=== PATIENT | female | born 1940 | race Caucasian/White ===

== ENCOUNTER 2017-05-15 17:25 | Emergency (ER) | payer MEDICARE, OTHER ==
[2017-05-15 18:29] LABS: CHLORIDE,CL 100 mmol/L (101-111); SODIUM,NA 135 mmol/L (135-145)
[2017-05-15] MEDS ORDERED: Sodium Chloride 0.9% 1,000 ML IV ONE (18:32)
[2017-05-15] MEDS ORDERED: Levofloxacin/Dextrose 5%-Water 500 MG in Premix Bag 1 BAG IV ONE (18:32)
--- NOTE | 2017-05-15 19:29 | EDM.PDOC ---
Scribed by Vivian Parra 05/15/17 [id number] for Kinsey Snyder NP ED HPI GENERAL MEDICAL PROBLEM - General Chief Complaint: Respiratory Problem Stated Complaint: COUGHING,HARD TO BREATH [id number] Time Seen by Provider: 05/15/17 17:50 - History of Present Illness INITIAL COMMENTS - FREE TEXT/NARRATIVE: Patient presents to ER with complaint of not feeling well. States symptoms began yesterday with runny nose, sneezing and cough which is productive of light green. Patient has history of breast cancer with mets to bone. Patient states temperature of 101 at home. Onset Date: 05/14/17 Location: Reports: Chest Quality: Reports: Ache Severity: Moderate Improves with: Reports: None Worsens with: Reports: None Associated Symptoms: Reports: No Other Symptoms Generalized Pain Score (Numeric/FACES): 6 - Related Data Allergies Allergy/AdvReac Type Severity Reaction Status Date / Time amoxicillin Allergy Diarrhea Verified 05/15/17 18:16 Sulfa (Sulfonamide Allergy Diarrhea Verified 05/15/17 18:16 Antibiotics) Home Meds: Home Meds Brimonidine/Timolol [Combigan 0.2%/0.5% Ophth Soln] 1 drop EYEBOTH BID 05/20/13 [History] Calcium Carbonate/Vitamin D3 [Calcium 500 + Vit D 200 Tablet] 1 each PO BID 02/20 [History] Escitalopram [Lexapro] 10 mg PO DAILY 05/20/13 [History] Latanoprost [Xalatan] 1 drop EYEBOTH BEDTIME 05/20/13 [History] Loperamide [Immodium] 4 mg PO ONETIME 05/20/13 [History] Omeprazole 20 mg PO DAILY 05/20/13 [History] Bimatoprost [LUMIGAN 0.01% Ophth Soln] 1 drop EYEBOTH BEDTIME 05/15/17 [History] Letrozole [Letrozole] 1 tab PO DAILY 05/15/17 [History] Palbociclib [Ibrance] 1 cap PO DAILY 05/15/17 [History] Social & Family History - Alcohol Use Days Per Week of Alcohol Use: 0 - Recreational Drug Use Recreational Drug Use: No ED ROS GENERAL - Review of Systems Review Of Systems: ROS reveals no pertinent complaints other than HPI. ED EXAM, GENERAL - Physical Exam Exam: See Below Exam Limited By: No Limitations General Appearance: Alert, WD/WN, No Apparent Distress Eye Exam: Bilateral Eye: Normal Inspection Ears: Normal External Exam, Normal Canal, Hearing Grossly Normal, Normal TMs Nose: Normal Inspection, Normal Mucosa, No Blood Throat/Mouth: Normal Inspection, Normal Lips, Normal Teeth, Normal Gums, Normal Oropharynx, Normal Voice, No Airway Compromise Head: Atraumatic, Normocephalic Neck: Normal Inspection, Supple, Non-Tender, Full Range of Motion Respiratory/Chest: Lungs Clear Cardiovascular: Normal Peripheral Pulses, Regular Rate, Rhythm, No Edema, No Gallop, No JVD, No Murmur, No Rub GI/Abdominal: Normal Bowel Sounds, Soft, Non-Tender, No Organomegaly, No Distention, No Abnormal Bruit, No Mass (Female) Exam: Deferred Rectal (Female) Exam: Deferred Back Exam: Normal Inspection, Full Range of Motion, NT Extremities: Normal Inspection, Normal Range of Motion, Non-Tender, Normal Capillary Refill, No Pedal Edema Neurological: Alert, Oriented, CN II-XII Intact, Normal Cognition, Normal Gait, Normal Reflexes, No Motor/Sensory Deficits Psychiatric: Normal Affect, Normal Mood Skin Exam: Warm, Dry, Intact, Normal Color, No Rash Lymphatic: No Adenopathy Course - Vital Signs Last Recorded V/S: Last Vital Signs Temp 102.3 F H 05/15/17 18:03 Pulse 111 H 05/15/17 17:30 Resp 28 H 05/15/17 17:30 BP 127/44 L 05/15/17 17:30 Pulse Ox 92 L 05/15/17 17:30 - Orders/Labs/Meds Orders: Active Orders 24 hr Category Date Time Status UA W/MICROSCOPIC [URIN] Stat Lab 05/15/17 17:58 Uncollected Levofloxacin/Dextrose 5%-Water [Levaquin in D5W 500 MG/ Med 05/15/17 18:32 Active 100 ML] 500 mg Premix Bag 1 bag IV ONETIME Sodium Chloride 0.9% [Normal Saline] 1,000 ml Med 05/15/17 18:32 Active IV .BOLUS Blood Culture x2 Reflex Set [OM.PC] Stat Oth 05/15/17 17:58 Ordered Medication Orders Levofloxacin/Dextrose 500 mg/ (Premix) 100 mls @ 100 mls/hr IV ONETIME ONE Stop: 05/15/17 19:31 Last Admin: 05/15/17 18:57 Dose: 100 mls/hr Sodium Chloride (Normal Saline) 1,000 mls @ 999 mls/hr IV .BOLUS ONE Stop: 05/15/17 19:32 Last Admin: 05/15/17 18:56 Dose: 999 mls/hr Labs: Laboratory Tests 05/15/17 05/15/17 05/15/17 Range/Units 18:00 18:00 18:00 WBC 2.6 L (5.0-10.0) 10^3/uL RBC 3.74 L (4.2-5.4) 10^6/uL Hgb 11.9 L D (12.0-16.0) g/dL Hct 35.0 L (37.0-47.0) % MCV 93.6 D (80-100) fL MCH 31.8 (27.0-34.0) pg MCHC 34.0 (33.0-35.0) g/dL Plt Count 86 L (150-450) 10^3/uL Neut % (Auto) 84.4 H (42.2-75.2) % Lymph % (Auto) 10.9 L (20.5-50.1) % [place] % (Auto) 4.3 (2-8) % Eos % (Auto) 0.0 L (1.0-3.0) % Baso % (Auto) 0.4 (0.0-1.0) % Sodium 135 (135-145) mmol/L Potassium 3.5 L (3.6-5.0) mmol/L Chloride 100 L (101-111) mmol/L Carbon Dioxide 25.0 (21.0-31.0) mmol/L Anion Gap 13.5 BUN 12 (7-18) mg/dL Creatinine 0.7 (0.6-1.3) mg/dL Est Cr Clr Drug Dosing 54.79 mL/min Estimated GFR (MDRD) > 60 BUN/Creatinine Ratio 17.14 Glucose 128 H (74-105) mg/dL Lactic Acid 0.9 (0.5-2.2) mmol/L Calcium 8.9 (8.4-10.2) mg/dl Total Bilirubin 0.9 (0.2-1.0) mg/dL AST 30 (10-42) IU/L ALT 20 (10-60) IU/L Alkaline Phosphatase 46 (42-121) IU/L Total Protein 6.8 (6.7-8.2) g/dl Albumin 4.0 (3.2-5.5) g/dl Globulin 2.8 Albumin/Globulin Ratio 1.43 Influenza A & B: Negative Meds: Medications Generic Name Dose Route Start Last Admin Trade Name Luisa PRN Reason Stop Dose Admin Levofloxacin/Dextrose 500 mg/ 100 mls @ 100 mls/hr 05/15/17 18:32 05/15/17 18 :57 Premix IV 05/15/17 19:31 100 mls/hr ONETIME ONE Administration Sodium Chloride 1,000 mls @ 999 mls/hr 05/15/17 18:32 05/15/17 18:56 Normal Saline IV 05/15/17 19:32 999 mls/hr .BOLUS ONE Administration - Radiology Interpretation Free Text/Narrative:: Portable Chest xray:IMPRESSION: No acute findings. Thank you for allowing us to participate in the care of your patient. Dictated and Authenticated by: Eliu Brown MD 05/15/2017 7:27 PM Central Time ([place] & [place]) See rad report Departure - Departure Time of Disposition: 19:11 Disposition: DC/Tfer to [facility] 02 Condition: Fair Clinical Impression: Cancer, Pancytopenia Fever Qualifiers: Fever type: unspecified Qualified Code(s): R50.9 - Fever, unspecified - Discharge Information Forms: ED Department Discharge, Interfacility Transfer EMTALA - My Orders Last 24 Hours: My Active Orders 05/15/17 17:58 UA W/MICROSCOPIC [URIN] Stat Blood Culture x2 Reflex Set [OM.PC] Stat 05/15/17 18:32 Levofloxacin/Dextrose 5%-Water [Levaquin in D5W 500 MG/100 ML] 500 mg Premix Bag 1 bag IV ONETIME Sodium Chloride 0.9% [Normal Saline] 1,000 ml IV .BOLUS - Assessment/Plan Last 24 Hours: My Active Orders 05/15/17 17:58 UA W/MICROSCOPIC [URIN] Stat Blood Culture x2 Reflex Set [OM.PC] Stat 05/15/17 18:32 Levofloxacin/Dextrose 5%-Water [Levaquin in D5W 500 MG/100 ML] 500 mg Premix Bag 1 bag IV ONETIME Sodium Chloride 0.9% [Normal Saline] 1,000 ml IV .BOLUS I have read and agree with the documentation that has been completed regarding this visit. By signing this record, I attest that the documentation was completed in my physical presence and is an accurate record of the encounter.
== END 2017-05-15 19:42 ==
LOC: DL.ED 17:25
DX: D61.818 Other pancytopenia (principal); C50.919 Malignant neoplasm of unspecified site of unspecified female breast; C79.51 Secondary malignant neoplasm of bone; R50.9 Fever, unspecified; Z88.1 Allergy status to other antibiotic agents; Z88.2 Allergy status to sulfonamides; Z79.899 Other long term (current) drug therapy
CPT/HCPCS: 36415; 71045; 80053; 83605; 85025; 87804; 96365; 99285; J1956; J7030

== ENCOUNTER 2018-08-11 23:56 | Emergency (ER) | payer MEDICARE, OTHER ==
[2018-08-12] MEDS ORDERED: fentaNYL 100 MCG/2 ML SDV IVPUSH ONE ×2 (00:40→02:16)
[2018-08-12] MEDS ORDERED: Ondansetron 4 MG Tab.DIS PO ONE (00:43)
[2018-08-12] MEDS ORDERED: fentaNYL 100 MCG/2 ML SDV IM ONE (00:44)
[2018-08-12 00:59] LABS: ANION GAP 12.2; CHLORIDE,CL 100 mmol/L (101-111); SODIUM,NA 135 mmol/L (135-145)
[2018-08-12] MEDS ORDERED: Potassium Chloride 10 MEQ in Premix Bag 1 BAG IV ONE (01:14)
[2018-08-12] MEDS ORDERED: Sodium Chloride 0.9% 500 ML IV SCH (01:15)
--- NOTE | 2018-08-12 02:30 | EDM.PDOC ---
ED HPI GENERAL MEDICAL PROBLEM - General Chief Complaint: Lower Extremity Injury/Pain Stated Complaint: AMBULANCE-BODY HURTS Time Seen by Provider: 08/12/18 00:05 Source of Information: Reports: Patient, EMS History Limitations: Reports: No Limitations - History of Present Illness INITIAL COMMENTS - FREE TEXT/NARRATIVE: ED via [facility] with c/o of generalized pain greater right sacrum and bilateral legs. Patient has hx of breast cancer with mets to bone. Undergoing radiation. 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 Stated was in [facility] on Sunday for sameNausea throughout day not eating or drinking as well, chills yesterday no fever. No diarrhea. Family member gaver her something for nausea today but unsure what it was. Bilateral Leg Pain Score (Numeric/FACES): 7 - Related Data Allergies Allergy/AdvReac Type Severity Reaction Status Date / Time amoxicillin Allergy Diarrhea Verified 08/12/18 00:05 Sulfa (Sulfonamide Allergy Diarrhea Verified 08/12/18 00:05 Antibiotics) Home Meds: Home Meds Brimonidine/Timolol [Combigan 0.2%/0.5% Ophth Soln] 1 drop EYEBOTH BID 05/20/13 [History] Calcium Carbonate/Vitamin D3 [Calcium 500 + Vit D 200 Tablet] 1 each PO BID 02/20 [History] Escitalopram [Lexapro] 10 mg PO DAILY 05/20/13 [History] Latanoprost [Xalatan] 1 drop EYEBOTH BEDTIME 05/20/13 [History] Loperamide [Immodium] 4 mg PO ONETIME 05/20/13 [History] Omeprazole 20 mg PO DAILY 05/20/13 [History] Bimatoprost [LUMIGAN 0.01% Ophth Soln] 1 drop EYEBOTH BEDTIME 05/15/17 [History] Letrozole 1 tab PO DAILY 05/15/17 [History] Palbociclib [Ibrance] 1 cap PO DAILY 05/15/17 [History] Past Medical History HEENT History: Reports: Glaucoma Hematologic History: Reports: B12 Deficiency Immunologic History: Reports: Immunosuppression Oncologic (Cancer) History: Reports: Bone, Breast - Past Surgical History Female Surgical History: Reports: Mastectomy, Other (See Below) Other Female Surgeries/Procedures: left breast Social & Family History - Tobacco Use Smoking Status *Q: Never Smoker Second Hand Smoke Exposure: No - Caffeine Use Caffeine Use: Reports: Coffee - Recreational Drug Use Recreational Drug Use: No Review of Systems - Review of Systems Review Of Systems: ROS reveals no pertinent complaints other than HPI. ED EXAM, GENERAL - Physical Exam Exam: See Below Exam Limited By: No Limitations General Appearance: Alert, Anxious, Mild Distress, Thin Eye Exam: Bilateral Eye: EOMI Ears: Normal External Exam, Normal TMs Nose: Normal Inspection Throat/Mouth: Normal Inspection, Other (mucus membranes sticky) Head: Atraumatic, Normocephalic Neck: Normal Inspection Respiratory/Chest: No Respiratory Distress, Lungs Clear, Normal Breath Sounds Cardiovascular: Regular Rate, Rhythm GI/Abdominal: Normal Bowel Sounds, Soft, Non-Tender. No: Distended, Guarding Back Exam: Normal Inspection, Other (tender with palpatin mid right sacrum). No : Paraspinal Tenderness, Vertebral Tenderness Extremities: Normal Inspection, Normal Range of Motion Neurological: Alert, Oriented, Normal Cognition Psychiatric: Normal Affect, Anxious Skin Exam: Warm, Dry, Intact, Normal Color Course - Vital Signs Last Recorded V/S: Last Vital Signs Temp 98.8 F 08/11/18 23:59 Pulse 61 08/11/18 23:59 Resp 18 08/11/18 23:59 BP 124/47 L 08/11/18 23:59 Pulse Ox 100 08/11/18 23:59 - Orders/Labs/Meds Orders: Active Orders 24 hr Category Date Time Status UA RFX BENJAMÍN AND CULT IF INDIC [URIN] Urgent Lab 08/12/18 00:16 Ordered Sodium Chloride 0.9% [Normal Saline] 500 ml Med 08/12/18 01:15 Active IV .BOLUS Medication Orders Sodium Chloride (Normal Saline) 500 mls @ 150 mls/hr IV .BOLUS ZARI Last Admin: 08/12/18 01:38 Dose: 150 mls/hr Labs: Laboratory Tests 08/12/18 08/12/18 08/12/18 Range/Units 00:30 00:30 00:30 WBC 3.4 L (5.0-10.0) 10^3/uL RBC 4.10 L (4.2-5.4) 10^6/uL Hgb 10.6 L (12.0-16.0) g/dL Hct 31.7 L (37.0-47.0) % MCV 77.3 L D (80-100) fL MCH 25.9 L (27.0-34.0) pg MCHC 33.4 (33.0-35.0) g/dL Plt Count 64 L (150-450) 10^3/uL Neut % (Auto) 62.3 (42.2-75.2) % Lymph % (Auto) 21.5 (20.5-50.1) % [place] % (Auto) 9.1 H (2-8) % Eos % (Auto) 1.2 (1.0-3.0) % Baso % (Auto) 5.9 H (0.0-1.0) % Sodium 135 (135-145) mmol/L Potassium 3.2 L (3.6-5.0) mmol/L Chloride 100 L (101-111) mmol/L Carbon Dioxide 26.0 (21.0-31.0) mmol/L Anion Gap 12.2 BUN 19 H (7-18) mg/dL Creatinine 0.8 (0.6-1.3) mg/dL Est Cr Clr Drug Dosing 45.10 mL/min Estimated GFR (MDRD) > 60 BUN/Creatinine Ratio 23.75 Glucose 138 H (74-105) mg/dL Lactic Acid 0.9 (0.5-2.2) mmol/L Calcium 7.9 L (8.4-10.2) mg/dl Total Bilirubin 0.7 (0.2-1.0) mg/dL AST 24 (10-42) IU/L ALT 21 (10-60) IU/L Alkaline Phosphatase 41 L (42-121) IU/L Total Protein 5.4 L (6.7-8.2) g/dl Albumin 3.3 (3.2-5.5) g/dl Globulin 2.1 Albumin/Globulin Ratio 1.57 Meds: Medications Generic Name Dose Route Start Last Admin Trade Name Freq PRN Reason Stop Dose Admin Sodium Chloride 500 mls @ 150 mls/hr 08/12/18 01:15 08/12/18 01:38 Normal Saline IV 150 mls/hr .BOLUS ZARI Administration Discontinued Medications Generic Name Dose Route Start Last Admin Trade Name Freq PRN Reason Stop Dose Admin Fentanyl 25 mcg 08/12/18 00:40 Sublimaze IVPUSH 08/12/18 00:41 ONETIME ONE Fentanyl 25 mcg 08/12/18 00:44 08/12/18 00:51 Sublimaze IM 08/12/18 00:45 25 mcg ONETIME ONE Administration Fentanyl 25 mcg 08/12/18 02:16 Sublimaze IVPUSH 08/12/18 02:17 ONETIME ONE Potassium Chloride 10 meq/ 100 mls @ 100 mls/hr 08/12/18 01:14 08/12/18 01:38 Premix IV 08/12/18 02:13 100 mls/hr ONETIME ONE Administration Ondansetron HCl 4 mg 08/12/18 00:43 08/12/18 00:50 Zofran Odt PO 08/12/18 00:44 4 mg ONETIME ONE Administration - Re-Assessments/Exams Free Text/Narrative Re-Assessment/Exam: 08/12/18 02:52 pain and nausea improved. Vitals stable. Departure - Departure Time of Disposition: 02:53 Disposition: Home, Self-Care 01 Condition: Good Clinical Impression: Pain after radiation therapy, Hypokalemia Breast cancer metastasized to bone Qualifiers: Laterality: unspecified laterality Qualified Code(s): C50.919 - Malignant neoplasm of unspecified site of unspecified female breast; C79.51 - Secondary malignant neoplasm of bone - Discharge Information *PRESCRIPTION DRUG MONITORING PROGRAM REVIEWED*: No *COPY OF PRESCRIPTION DRUG MONITORING REPORT IN PATIENT JANETT: No Instructions: Pain Medicine Instructions, [id number] Additional Instructions: continue home medicatons follow up with primary care or oncology to discuss pain managment options zofran ODT 4mg every 6 hours as needed for nausea increase fluid intake, smaller amounts more often - My Orders Last 24 Hours: My Active Orders 08/12/18 00:16 UA RFX BENJAMÍN AND CULT IF INDIC [URIN] Urgent 08/12/18 01:15 Sodium Chloride 0.9% [Normal Saline] 500 ml IV .BOLUS - Assessment/Plan Last 24 Hours: My Active Orders 08/12/18 00:16 UA RFX BENJAMÍN AND CULT IF INDIC [URIN] Urgent 08/12/18 01:15 Sodium Chloride 0.9% [Normal Saline] 500 ml IV .BOLUS
== END 2018-08-12 02:50 | disposition home or self-care (01) ==
LOC: DL.ED 23:56
DX: G89.3 Neoplasm related pain (acute) (chronic) (principal); C50.919 Malignant neoplasm of unspecified site of unspecified female breast; C79.51 Secondary malignant neoplasm of bone; E87.6 Hypokalemia; Z79.899 Other long term (current) drug therapy; Z88.1 Allergy status to other antibiotic agents; Z88.2 Allergy status to sulfonamides
CPT/HCPCS: 36415; 80053; 83605; 85025; 96365; 96372; 96375; 99283; A9270; J3010; J3480; J7040

== ENCOUNTER 2018-08-16 00:04 | Emergency (ER) | payer MEDICARE, OTHER ==
[2018-08-16] MEDS ORDERED: HYDROmorphone 1 MG/ML Syringe IVPUSH ONE ×3 (00:28→02:34)
--- NOTE | 2018-08-16 00:57 | EDM.PDOC ---
ED HPI GENERAL MEDICAL PROBLEM - General Chief Complaint: General Stated Complaint: PAIN Time Seen by Provider: 08/16/18 00:25 Source of Information: Reports: Patient History Limitations: Reports: No Limitations - History of Present Illness INITIAL COMMENTS - FREE TEXT/NARRATIVE: This 77 yo female patient reports to the ED with pain from her lower back through bilateral lower extremities. The patient reports she has cancer with mets to the bone. Today, the patient had radiation treatment. Prior to coming to the ED the patient had take 2 Hydrocodone tablets with no symptom relief. The patient was seen in the ED with similar symptoms after her previous radiation treatment. The patient reports some symptom improvement with the Fentanyl that was ordered, but her pain was not totally relieved. Previous records demonstrate that the patient was given Fentanyl (25 mcg) x 3 during the previous visit. Onset: Today Duration: Constant Location: Reports: Back, Lower Extremity, Left, Lower Extremity, Right Quality: Reports: Other Severity: Moderate Improves with: Reports: None Worsens with: Reports: None Context: Reports: Other Associated Symptoms: Reports: No Other Symptoms Bilateral Leg Pain Score (Numeric/FACES): 8 - Related Data Allergies Allergy/AdvReac Type Severity Reaction Status Date / Time amoxicillin Allergy Diarrhea Verified 08/12/18 00:05 Sulfa (Sulfonamide Allergy Diarrhea Verified 08/12/18 00:05 Antibiotics) Home Meds: Home Meds Brimonidine/Timolol [Combigan 0.2%/0.5% Ophth Soln] 1 drop EYEBOTH BID 05/20/13 [History] Calcium Carbonate/Vitamin D3 [Calcium 500 + Vit D 200 Tablet] 1 each PO BID 02/20 [History] Escitalopram [Lexapro] 10 mg PO DAILY 05/20/13 [History] Latanoprost [Xalatan] 1 drop EYEBOTH BEDTIME 05/20/13 [History] Loperamide [Immodium] 4 mg PO ONETIME 05/20/13 [History] Omeprazole 20 mg PO DAILY 05/20/13 [History] Bimatoprost [LUMIGAN 0.01% Ophth Soln] 1 drop EYEBOTH BEDTIME 05/15/17 [History] Letrozole 1 tab PO DAILY 05/15/17 [History] Palbociclib [Ibrance] 1 cap PO DAILY 05/15/17 [History] Past Medical History HEENT History: Reports: Glaucoma Hematologic History: Reports: B12 Deficiency Immunologic History: Reports: Immunosuppression Oncologic (Cancer) History: Reports: Bone, Breast - Past Surgical History Female Surgical History: Reports: Mastectomy, Other (See Below) Other Female Surgeries/Procedures: left breast Social & Family History - Tobacco Use Smoking Status *Q: Former Smoker Used Tobacco, but Quit: Yes Month/Year Tobacco Last Used: 1999 - Caffeine Use Caffeine Use: Reports: Coffee - Recreational Drug Use Recreational Drug Use: No ED ROS GENERAL - Review of Systems Review Of Systems: ROS reveals no pertinent complaints other than HPI. ED EXAM, GENERAL - Physical Exam Exam: See Below Exam Limited By: No Limitations General Appearance: Alert, WD/WN, Moderate Distress Eye Exam: Bilateral Eye: EOMI, Normal Inspection, PERRL Ears: Normal External Exam, Normal Canal, Hearing Grossly Normal, Normal TMs Nose: Normal Inspection, Normal Mucosa, No Blood Throat/Mouth: Normal Inspection, Normal Lips, Normal Teeth, Normal Gums, Normal Oropharynx, Normal Voice, No Airway Compromise Head: Atraumatic, Normocephalic Neck: Normal Inspection, Supple, Non-Tender, Full Range of Motion Respiratory/Chest: No Respiratory Distress, Lungs Clear, Normal Breath Sounds, No Accessory Muscle Use, Chest Non-Tender Cardiovascular: Normal Peripheral Pulses, Regular Rate, Rhythm, No Edema, No Gallop, No JVD, No Murmur, No Rub GI/Abdominal: Normal Bowel Sounds, Soft, Non-Tender, No Organomegaly, No Distention, No Abnormal Bruit, No Mass (Female) Exam: Deferred Rectal (Female) Exam: Deferred Back Exam: Normal Inspection, Full Range of Motion, NT Extremities: Limited Range of Motion Neurological: Alert, Oriented, CN II-XII Intact, Normal Cognition, Normal Gait, Normal Reflexes, No Motor/Sensory Deficits Psychiatric: Normal Affect, Normal Mood Skin Exam: Warm, Dry, Intact, Normal Color, No Rash Lymphatic: No Adenopathy Course - Vital Signs Last Recorded V/S: Last Vital Signs Temp 37.0 C 08/16/18 00:08 Pulse 79 08/16/18 00:08 Resp 20 08/16/18 02:17 BP 134/58 L 08/16/18 00:08 Pulse Ox 98 08/16/18 02:17 - Orders/Labs/Meds Labs: Laboratory Tests 08/16/18 08/16/18 Range/Units 00:41 00:41 WBC 2.2 L (5.0-10.0) 10^3/uL RBC 3.73 L (4.2-5.4) 10^6/uL Hgb 9.6 L (12.0-16.0) g/dL Hct 29.0 L (37.0-47.0) % MCV 77.7 L (80-100) fL MCH 25.7 L (27.0-34.0) pg MCHC 33.1 (33.0-35.0) g/dL Plt Count 63 L (150-450) 10^3/uL Neut % (Auto) 60.6 (42.2-75.2) % Lymph % (Auto) 21.5 (20.5-50.1) % [place] % (Auto) 13.9 H (2-8) % Eos % (Auto) 2.2 (1.0-3.0) % Baso % (Auto) 1.8 H (0.0-1.0) % Sodium 133 L (135-145) mmol/L Potassium 2.8 L (3.6-5.0) mmol/L Chloride 101 (101-111) mmol/L Carbon Dioxide 23.0 (21.0-31.0) mmol/L Anion Gap 11.8 BUN 18 (7-18) mg/dL Creatinine 0.6 (0.6-1.3) mg/dL Est Cr Clr Drug Dosing 60.13 mL/min Estimated GFR (MDRD) > 60 BUN/Creatinine Ratio 30.00 Glucose 106 H (74-105) mg/dL Calcium 8.0 L (8.4-10.2) mg/dl Total Bilirubin 0.7 (0.2-1.0) mg/dL AST 21 (10-42) IU/L ALT 19 (10-60) IU/L Alkaline Phosphatase 38 L (42-121) IU/L Total Protein 5.6 L (6.7-8.2) g/dl Albumin 3.3 (3.2-5.5) g/dl Globulin 2.3 Albumin/Globulin Ratio 1.43 Meds: Medications Discontinued Medications Generic Name Dose Route Start Last Admin Trade Name Freq PRN Reason Stop Dose Admin Heparin Sodium (Porcine) 500 units 08/16/18 02:35 Heparin Lock Flush 100 Units/Ml FLUSH 08/16/18 02:36 ONETIME ONE Hydromorphone HCl 0.5 mg 08/16/18 00:28 08/16/18 00:50 Dilaudid IVPUSH 08/16/18 00:29 0.5 mg ONETIME ONE Administration Hydromorphone HCl 0.5 mg 08/16/18 01:13 08/16/18 01:21 Dilaudid IVPUSH 08/16/18 01:14 0.5 mg ONETIME ONE Administration Hydromorphone HCl 0.5 mg 08/16/18 02:34 Dilaudid IVPUSH 08/16/18 02:35 ONETIME ONE Hydromorphone HCl Confirm 08/16/18 02:38 Dilaudid Administered 08/16/18 02:39 Dose 1 mg .ROUTE .STK-MED ONE Potassium Chloride 10 meq/ 100 mls @ 100 mls/hr 08/16/18 01:14 08/16/18 01:30 Premix IV 08/16/18 02:13 100 mls/hr ONETIME ONE Administration Ondansetron HCl 4 mg 08/16/18 02:39 Zofran IV 08/16/18 02:40 ONETIME ONE - Re-Assessments/Exams Free Text/Narrative Re-Assessment/Exam: 08/16/18 02:42 The patient got nauseated and vomited once. She was given an IV dose of Zofran for the nausea. Departure - Departure Time of Disposition: 02:43 Disposition: Home, Self-Care 01 Condition: Fair Clinical Impression: Pain after radiation therapy, Hypokalemia - Discharge Information *PRESCRIPTION DRUG MONITORING PROGRAM REVIEWED*: Not Applicable *COPY OF PRESCRIPTION DRUG MONITORING REPORT IN PATIENT JANETT: Not Applicable Forms: ED Department Discharge Care Plan Goals: The patient was advised of the examination and lab results during the visit. The patient was given IV Dilaudid for pain, IV Potassium and IV Zofran for nausea while in the ED. The patient was encouraged to advise her primary care provider about the pain she has been experiencing after getting radiation treatments. If the patient has any additional symptoms or concerns, the patient should either return to the emergency department or visit her primary care facility.
[2018-08-16 01:05] LABS: ANION GAP 11.8; CHLORIDE,CL 101 mmol/L (101-111); SODIUM,NA 133 mmol/L (135-145)
[2018-08-16] MEDS ORDERED: Potassium Chloride 10 MEQ in Premix Bag 1 BAG IV ONE (01:14)
[2018-08-16] MEDS ORDERED: HYDROmorphone 1 MG/ML Syringe ONE (02:38)
[2018-08-16] MEDS ORDERED: Ondansetron 4 MG/2 ML SDV IV ONE (02:39)
== END 2018-08-16 03:06 | disposition home or self-care (01) ==
LOC: DL.ED 00:04
DX: G89.3 Neoplasm related pain (acute) (chronic) (principal); E87.6 Hypokalemia; C50.919 Malignant neoplasm of unspecified site of unspecified female breast; C79.51 Secondary malignant neoplasm of bone; Z79.899 Other long term (current) drug therapy; Z87.891 Personal history of nicotine dependence
CPT/HCPCS: 36415; 80053; 85025; 96365; 96375; 96376; 99283; A4217; J1170; J1642; J2405; J3480

== ENCOUNTER 2018-08-20 01:28 | Observation (INO) | payer MEDICARE, OTHER ==
[2018-08-20] MEDS ORDERED: Sodium Chloride 0.9% 1,000 ML IV ONE (01:46)
[2018-08-20] MEDS ORDERED: HYDROmorphone 1 MG/ML Syringe IVPUSH ONE ×2 (01:49→02:36)
--- NOTE | 2018-08-20 02:19 | EDM.PDOC ---
ED HPI GENERAL MEDICAL PROBLEM - General Chief Complaint: Lower Extremity Injury/Pain Stated Complaint: PAIN Time Seen by Provider: 08/20/18 01:30 Source of Information: Reports: Patient, Family History Limitations: Reports: No Limitations - History of Present Illness INITIAL COMMENTS - FREE TEXT/NARRATIVE: ED with c/o of pain and nausea. Hx breast cancer with mets to bone. Receiving radiation to sacral area. Last on Sunday. Pain had been under control with morphine scheduled and oxycodone prn. Tonight slipped off toilet. Did not hit head. No loss of consciousness Pain since, No relief with oxycodone. nauseated. Both chronic since radiation. Now worse tonight and unable to manage. Transfers per self, limited walking. Has been weight bearing since fall. Pain in same areas as previous to fall. Recent hospitalziations x 2 for pain control. Bilateral Lower Leg Pain Score (Numeric/FACES): 9 Back Pain Score (Numeric/FACES): 10 - Related Data Allergies Allergy/AdvReac Type Severity Reaction Status Date / Time amoxicillin Allergy Diarrhea Verified 08/20/18 06:29 Sulfa (Sulfonamide Allergy Diarrhea Verified 08/20/18 06:29 Antibiotics) Home Meds: Home Meds Brimonidine/Timolol [Combigan 0.2%/0.5% Ophth Soln] 1 drop EYEBOTH Q12HR [History] Escitalopram [Lexapro] 10 mg PO DAILY 05/20/13 [History] Latanoprost [Xalatan] 1 drop EYEBOTH BEDTIME 05/20/13 [History] Loperamide [Immodium] 4 mg PO QID PRN 05/20/13 [History] Omeprazole 20 mg PO DAILY 05/20/13 [History] Letrozole 1 tab PO DAILY 05/15/17 [History] Palbociclib [Ibrance] 1 cap PO DAILY 05/15/17 [History] Acetaminophen 1,000 mg PO Q6H PRN 08/20/18 [History] Everolimus [Afinitor] 10 mg PO DAILY 08/20/18 [History] Exemestane 25 mg PO DAILY 08/20/18 [History] Morphine [MS Contin] 15 mg PO Q12H 08/20/18 [History] Ondansetron HCl [Ondansetron] 8 mg PO Q8H PRN 08/20/18 [History] Prochlorperazine [Compazine] 10 mg PO Q6H PRN 08/20/18 [History] hydrOXYzine HCl [hydrOXYzine] 25 mg PO TID PRN 08/20/18 [History] oxyCODONE 5 mg PO Q6H PRN 08/20/18 [History] Past Medical History HEENT History: Reports: Glaucoma Hematologic History: Reports: B12 Deficiency Immunologic History: Reports: Immunosuppression Oncologic (Cancer) History: Reports: Bone, Breast - Past Surgical History Female Surgical History: Reports: Mastectomy, Other (See Below) Other Female Surgeries/Procedures: left breast Social & Family History - Tobacco Use Smoking Status *Q: Former Smoker Used Tobacco, but Quit: Yes Month/Year Tobacco Last Used: 1999 - Caffeine Use Caffeine Use: Reports: Coffee - Recreational Drug Use Recreational Drug Use: No Review of Systems - Review of Systems Review Of Systems: See Below Constitutional: Reports: Weakness Ears: Reports: No Symptoms Nose: Reports: No Symptoms Mouth/Throat: Reports: No Symptoms Respiratory: Reports: No Symptoms Cardiovascular: Reports: No Symptoms GI/Abdominal: Reports: Decreased Appetite, Nausea Skin: Reports: No Symptoms Neurological: Reports: Weakness (generalized) ED EXAM, GENERAL - Physical Exam Exam: See Below Exam Limited By: No Limitations General Appearance: Alert, Mild Distress, Thin Ears: Normal External Exam, Hearing Grossly Normal Nose: Normal Inspection Throat/Mouth: Other (mucus membranes dry) Neck: Normal Inspection, Non-Tender, Full Range of Motion Respiratory/Chest: No Respiratory Distress, Lungs Clear, Normal Breath Sounds Cardiovascular: Normal Peripheral Pulses, Regular Rate, Rhythm GI/Abdominal: Normal Bowel Sounds, Soft Back Exam: Full Range of Motion, Other (no redened area, no bruising). No: Paraspinal Tenderness, Vertebral Tenderness Extremities: Normal Range of Motion. No: Increased Warmth, Mottled, Pallor, Redness, Other (no bruising) Neurological: Alert, Oriented, Other (Slower responses than previous ED visit, unsure of medication) Psychiatric: Anxious Skin Exam: Warm, Dry, Intact Course - Vital Signs Last Recorded V/S: Last Vital Signs Temp 99.0 F 08/20/18 18:57 Pulse 95 08/20/18 18:57 Resp 20 08/20/18 18:57 BP 122/46 L 08/20/18 18:57 Pulse Ox 95 08/20/18 18:57 - Orders/Labs/Meds Orders: Active Orders 24 hr Category Date Time Status Escitalopram [Lexapro] Med 08/20/18 09:00 Active 10 mg PO DAILY Latanoprost [Xalatan 0.005% Ophth Soln] Med 08/20/18 21:00 Active 0 ml EYEBOTH BEDTIME Loperamide [Imodium] Med 08/20/18 08:22 Active 4 mg PO QID PRN Morphine [MS Contin] Med 08/20/18 09:00 Active 15 mg PO BID Omeprazole Med 08/20/18 12:30 Active 20 mg PO ACBRK Patient's Own Medication [Ptom] Med 08/20/18 09:00 Active 0 each EYEBOTH Q12HR Patient's Own Medication [Ptom] Med 08/20/18 09:00 Active 0 each PO DAILY Patient's Own Medication [Ptom] Med 08/20/18 09:00 Active 0 each PO DAILY Patient's Own Medication [Ptom] Med 08/20/18 08:22 Active 0 each PO Q8H PRN hydrOXYzine HCl [Atarax] Med 08/20/18 08:22 Active 25 mg PO TID PRN oxyCODONE Med 08/20/18 08:22 Active 5 mg PO Q6H PRN Medication Orders Acetaminophen (Tylenol) 650 mg PO Q4H PRN PRN Reason: Pain (Mild 1-3)/fever Docusate Sodium (Colace) 100 mg PO BID PRN PRN Reason: Constipation Escitalopram Oxalate (Lexapro) 10 mg PO DAILY [facility] Last Admin: 08/20/18 10:38 Dose: 10 mg Hydroxyzine HCl (Atarax) 25 mg PO TID PRN PRN Reason: Itching Ibuprofen (Motrin) 400 mg PO Q6H PRN PRN Reason: Pain (moderate 4-6) Latanoprost (Xalatan 0.005% Ophth Soln) 0 ml EYEBOTH BEDTIME [facility] Last Admin: 08/20/18 20:46 Dose: 1 drop Lidocaine (Lidoderm 5%) 700 mg TOP DAILY [facility] Last Admin: 08/20/18 10:37 Dose: 700 mg Loperamide HCl (Imodium) 4 mg PO QID PRN PRN Reason: Diarrhea Miscellaneous Information (Remove Patch) 1 ea TRDERM BEDTIME [facility] Last Admin: 08/20/18 20:47 Dose: Morphine Sulfate (Ms Contin) 15 mg PO BID [facility] Last Admin: 08/20/18 20:44 Dose: 15 mg Admin: 08/20/18 10:38 Dose: 15 mg Omeprazole (Omeprazole) 20 mg PO ACBRK [facility] Last Admin: 08/20/18 12:42 Dose: 20 mg Oxycodone HCl (Oxycodone) 5 mg PO Q6H PRN PRN Reason: Pain Brimonidine/Timolol [Combigan 0.2%/0.5% Ophth Soln] Pt's Own Med 0 each EYEBOTH Q12HR [facility] Last Admin: 08/20/18 20:46 Dose: 1 each Admin: 08/20/18 12:42 Dose: 1 each Everolimus [Afinitor ] 10 Mg Pt's Own Med 0 each PO DAILY [facility] Last Admin: 08/20/18 12:43 Dose: 1 each Exemestane [ Exemestane] 25 Mg Pt's Own Med 0 each PO DAILY [facility] Last Admin: 08/20/18 12:46 Dose: 1 each Ondansetron Hcl 8 Mg (Pt's Own Med) 0 each PO Q8H PRN PRN Reason: Nausea/Vomiting Sodium Chloride (Saline Flush) 10 ml FLUSH ASDIRECTED PRN PRN Reason: Keep Vein Open Last Admin: 08/20/18 12:46 Dose: 10 ml Zolpidem Tartrate (Ambien) 5 mg PO BEDTIME PRN PRN Reason: Sleep Labs: Laboratory Tests 08/20/18 08/20/18 Range/Units 01:52 01:52 WBC 3.2 L (5.0-10.0) 10^3/uL RBC 3.93 L (4.2-5.4) 10^6/uL Hgb 10.1 L (12.0-16.0) g/dL Hct 31.8 L (37.0-47.0) % MCV 80.9 D (80-100) fL MCH 25.7 L (27.0-34.0) pg MCHC 31.8 L (33.0-35.0) g/dL Plt Count 66 L (150-450) 10^3/uL Neut % (Auto) 69.8 (42.2-75.2) % Lymph % (Auto) 13.1 L (20.5-50.1) % [place] % (Auto) 13.4 H (2-8) % Eos % (Auto) 2.5 (1.0-3.0) % Baso % (Auto) 1.2 H (0.0-1.0) % Sodium 138 (135-145) mmol/L Potassium 3.1 L (3.6-5.0) mmol/L Chloride 102 (101-111) mmol/L Carbon Dioxide 27.0 (21.0-31.0) mmol/L Anion Gap 12.1 BUN 15 (7-18) mg/dL Creatinine 0.6 (0.6-1.3) mg/dL Est Cr Clr Drug Dosing 60.13 mL/min Estimated GFR (MDRD) > 60 Glucose 120 H (74-105) mg/dL Calcium 7.8 L (8.4-10.2) mg/dl Meds: Medications Generic Name Dose Route Start Last Admin Trade Name Freq PRN Reason Stop Dose Admin Acetaminophen 650 mg 08/20/18 08:25 Tylenol PO Q4H PRN Pain (Mild 1-3)/fever Docusate Sodium 100 mg 08/20/18 08:25 Colace PO BID PRN Constipation Escitalopram Oxalate 10 mg 08/20/18 09:00 08/20/18 10:38 Lexapro PO 10 mg DAILY [facility] Administration Hydroxyzine HCl 25 mg 08/20/18 08:22 Atarax PO TID PRN Itching Ibuprofen 400 mg 08/20/18 08:25 Motrin PO Q6H PRN Pain (moderate 4-6) Latanoprost 0 ml 08/20/18 21:00 08/20/18 20:46 Xalatan 0.005% Ophth Soln EYEBOTH 1 drop BEDTIME [facility] Administration Lidocaine 700 mg 08/20/18 09:00 08/20/18 10:37 Lidoderm 5% TOP 700 mg DAILY [facility] Administration Loperamide HCl 4 mg 08/20/18 08:22 Imodium PO QID PRN Diarrhea Miscellaneous Information 1 ea 08/20/18 21:00 08/20/18 20:47 Remove Patch TRDERM Not Given BEDTIME [facility] Morphine Sulfate 15 mg 08/20/18 09:00 08/20/18 20:44 Ms Contin PO 15 mg BID [facility] Administration Omeprazole 20 mg 08/20/18 12:30 08/20/18 12:42 Omeprazole PO 20 mg ACBRK [facility] Administration Oxycodone HCl 5 mg 08/20/18 08:22 Oxycodone PO Q6H PRN Pain Brimonidine/Timolol 0 each 08/20/18 09:00 08/20/18 20:46 [Combigan 0.2%/0.5% EYEBOTH 1 each Ophth Soln] Pt's Q12HR [facility]I Administration Own Med Everolimus [Afinitor 0 each 08/20/18 09:00 08/20/18 12:43 ] 10 Mg Pt's Own PO 1 each Med DAILY [facility] Administration Exemestane [ 0 each 08/20/18 09:00 08/20/18 12:46 Exemestane] 25 Mg PO 1 each Pt's Own Med DAILY [facility] Administration Ondansetron Hcl 8 Mg 0 each 08/20/18 08:22 Pt's Own Med PO Q8H PRN Nausea/Vomiting Sodium Chloride 10 ml 08/20/18 08:25 08/20/18 12:46 Saline Flush FLUSH 10 ml ASDIRECTED PRN Administration Keep Vein Open Zolpidem Tartrate 5 mg 08/20/18 08:25 Ambien PO BEDTIME PRN Sleep Discontinued Medications Generic Name Dose Route Start Last Admin Trade Name Freq PRN Reason Stop Dose Admin Heparin Sodium (Porcine) 500 units 08/20/18 04:19 08/20/18 07:26 Heparin Lock Flush 100 Units/Ml FLUSH 08/20/18 04:20 Not Given ASDIRECTED ONE Hydromorphone HCl 0.5 mg 08/20/18 01:49 08/20/18 02:02 Dilaudid IVPUSH 08/20/18 01:50 0.5 mg ONETIME ONE Administration Hydromorphone HCl 0.5 mg 08/20/18 02:36 08/20/18 02:44 Dilaudid IVPUSH 08/20/18 02:37 0.5 mg ONETIME ONE Administration Sodium Chloride 1,000 mls @ 500 mls/hr 08/20/18 01:46 08/20/18 02:03 Normal Saline IV 08/20/18 03:45 500 mls/hr .BOLUS ONE Administration Potassium Chloride 10 meq/ 100 mls @ 100 mls/hr 08/20/18 02:43 08/20/18 03:02 Premix IV 08/20/18 03:42 100 mls/hr ONETIME ONE Administration Lorazepam 0.5 mg 08/20/18 03:57 08/20/18 04:03 Ativan IVPUSH 08/20/18 03:58 0.5 mg ONETIME ONE Administration Metoclopramide HCl 5 mg 08/20/18 02:37 08/20/18 02:43 Reglan IVPUSH 08/20/18 02:38 5 mg ONETIME ONE Administration Potassium Chloride 40 meq 08/20/18 09:15 08/20/18 10:37 Klor-Con 10 PO 08/20/18 09:16 40 meq ONETIME ONE Administration - Re-Assessments/Exams Free Text/Narrative Re-Assessment/Exam: 08/20/18 05:58 Continued c/o pain anxious restless. Trial low dose ativan. Intermittent dozing O2 sats dropped mid 80's initial O2 at 2L sats 98%, wean down to .5L/ 92-94%. Arouses easily to voice. When awake still c/o pain 10/0, drifts back to sleep. TC Dr Sandra SOFIA, Hospitalist. Patient to be admitted observation. Departure - Departure Time of Disposition: 03:37 Disposition: Refer to Observation Condition: Good Clinical Impression: Hypokalemia, Metastasis from breast cancer, Pain Fall Qualifiers: Encounter type: initial encounter Qualified Code(s): W19.XXXA - Unspecified fall, initial encounter - Discharge Information *PRESCRIPTION DRUG MONITORING PROGRAM REVIEWED*: No *COPY OF PRESCRIPTION DRUG MONITORING REPORT IN PATIENT JANETT: No
[2018-08-20 02:20] LABS: ANION GAP 12.1; CHLORIDE,CL 102 mmol/L (101-111); SODIUM,NA 138 mmol/L (135-145)
[2018-08-20] MEDS ORDERED: Metoclopramide 10 MG/2 ML SDV IVPUSH ONE (02:37)
[2018-08-20] MEDS ORDERED: Potassium Chloride 10 MEQ in Premix Bag 1 BAG IV ONE (02:43)
[2018-08-20] MEDS ORDERED: LORazepam 2 MG/ML Syringe IVPUSH ONE (03:57)
[2018-08-20] MEDS ORDERED: OXYCODONE 5 MG PO PRN (08:22)
[2018-08-20] MEDS ORDERED: Loperamide 1 MG/5 ML Soln 5 ML UD Cup PO PRN (08:22)
[2018-08-20] MEDS ORDERED: ONDANSETRON HCL 8 MG PO PRN (08:22)
[2018-08-20] MEDS ORDERED: hydrOXYzine HCl 25 MG Tab PO PRN (08:22)
[2018-08-20] MEDS ORDERED: Zolpidem 5 MG Tab PO PRN (08:25)
[2018-08-20] MEDS ORDERED: Acetaminophen 325 MG Tab PO PRN (08:25)
[2018-08-20] MEDS ORDERED: Ibuprofen 400 MG Tab PO PRN (08:25)
[2018-08-20] MEDS ORDERED: Docusate Sodium 100 MG Cap PO PRN (08:25)
[2018-08-20] MEDS ORDERED: Morphine 15 MG Tab.ER PO ONE (08:26)
--- NOTE | 2018-08-20 08:53 | CR ---
Clinical history: 77-year-old female hypoxemia (left mastectomy 2004). Interpretation: Upright AP portable chest film confirms evidence of left chest wall surgery with subtle chronic asymmetric elevation of the ipsilateral left hemidiaphragm and underlying atelectasis/fibrosis unchanged since 15 May 2017 films. Right supraclavicular central venous infusion port also unchanged. Normal cardiac silhouette without alveolar edema or dependent pleural effusion. No new lung mass, hilar lymphadenopathy or focal lobar pneumonia.
[2018-08-20] MEDS ORDERED: Potassium Chloride 10 MEQ Tab.ER PO ONE (09:15)
--- NOTE | 2018-08-20 10:28 | PCM.HP ---
H&P History of Present Illness - General Date of Service: 08/20/18 Admit Problem/Dx: Admission Diagnosis/Problem Admission Diagnosis/Problem Back pain - History of Present Illness Initial Comments - Free Text/Narative: 77-year-old lady with a history of metastatic breast cancer. The patient has known metastatic areas in the rape, thoracic, lumbar and sacral spine. The patient has been receiving radiation for this. The patient was hospitalized for 2 days at [facility] for severe back pain Initially was treated with C[employer] P[employer] LOADER and then transitioned to MS Contin and oxycodone. She was discharged on 18 August. On the evening of 19 August the patient was trying to use the toilette when she slipped and was complaining of the increased low back pain subsequently. The patient came into the emergency room and was given IV Dilaudid. Subsequently hypoxemia was noted. The patient still complaining of moderate to severe back pain, worse with activity and moving. No associated nausea. There is associated confusion. With default there is no apparent loss of consciousness or trauma to the head. Obtain information from the patient, ER provider and the patient's . Bilateral Lower Leg Pain Score (Numeric/FACES): 0 - Related Data Allergies/Adverse Reactions: Allergies Allergy/AdvReac Type Severity Reaction Status Date / Time amoxicillin Allergy Diarrhea Verified 08/20/18 06:29 Sulfa (Sulfonamide Allergy Diarrhea Verified 08/20/18 06:29 Antibiotics) Home Medications: Home Meds Brimonidine/Timolol [Combigan 0.2%/0.5% Ophth Soln] 1 drop EYEBOTH Q12HR [History] Escitalopram [Lexapro] 10 mg PO DAILY 05/20/13 [History] Latanoprost [Xalatan] 1 drop EYEBOTH BEDTIME 05/20/13 [History] Loperamide [Immodium] 4 mg PO QID PRN 05/20/13 [History] Omeprazole 20 mg PO DAILY 05/20/13 [History] Letrozole 1 tab PO DAILY 05/15/17 [History] Palbociclib [Ibrance] 1 cap PO DAILY 05/15/17 [History] Acetaminophen 1,000 mg PO Q6H PRN 08/20/18 [History] Everolimus [Afinitor] 10 mg PO DAILY 08/20/18 [History] Exemestane 25 mg PO DAILY 08/20/18 [History] Morphine [MS Contin] 15 mg PO Q12H 08/20/18 [History] Ondansetron HCl [Ondansetron] 8 mg PO Q8H PRN 08/20/18 [History] Prochlorperazine [Compazine] 10 mg PO Q6H PRN 08/20/18 [History] hydrOXYzine HCl [hydrOXYzine] 25 mg PO TID PRN 08/20/18 [History] oxyCODONE 5 mg PO Q6H PRN 08/20/18 [History] Past Medical History HEENT History: Reports: Glaucoma 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 History: Reports: Other (See Below) Other 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 History: left breast mastectomy [employer] History: Reports: Hematologic History: Reports: B12 Deficiency Immunologic History: Reports: Immunosuppression Oncologic (Cancer) History: Reports: Bone, Breast - Past Surgical History Female Surgical History: Reports: Mastectomy, Other (See Below) Other Female Surgeries/Procedures: left breast Social & Family History - Tobacco Use Smoking Status *Q: Former Smoker Years of Tobacco use: 50 Packs/Tins Daily: 2 Used Tobacco, but Quit: Yes Month/Year Tobacco Last Used: Second Hand Smoke Exposure: Yes - Caffeine Use Caffeine Use: Reports: None - Recreational Drug Use Recreational Drug Use: No H&P Review of Systems - Review of Systems: Review Of Systems: See Below General: Denies: Fever Pulmonary: Denies: Shortness of Breath Cardiovascular: Denies: Chest Pain, Edema Gastrointestinal: Denies: Abdominal Pain Musculoskeletal: Reports: Back Pain Exam - Exam Exam: See Below - Vital Signs Vital Signs: Last Vital Signs Temp 36.7 C 08/20/18 08:25 Pulse 66 08/20/18 08:25 Resp 20 08/20/18 08:25 BP 118/54 L 08/20/18 08:25 Pulse Ox 100 08/20/18 08:25 Weight: 52.934 kg - Exam General: Alert, Oriented Neck: Supple Lungs: Clear to Auscultation, Normal Respiratory Effort Cardiovascular: Regular Rate, Regular Rhythm GI/Abdominal Exam: Normal Bowel Sounds, Soft, Non-Tender Back Exam: Normal Inspection Extremities: No Pedal Edema - Patient Data Lab Results Last 24 hrs: Laboratory Results - last 24 hr 08/20/18 08/20/18 Range/Units 01:52 01:52 WBC 3.2 L (5.0-10.0) 10^3/uL RBC 3.93 L (4.2-5.4) 10^6/uL Hgb 10.1 L (12.0-16.0) g/dL Hct 31.8 L (37.0-47.0) % MCV 80.9 D (80-100) fL MCH 25.7 L (27.0-34.0) pg MCHC 31.8 L (33.0-35.0) g/dL Plt Count 66 L (150-450) 10^3/uL Neut % (Auto) 69.8 (42.2-75.2) % Lymph % (Auto) 13.1 L (20.5-50.1) % [place] % (Auto) 13.4 H (2-8) % Eos % (Auto) 2.5 (1.0-3.0) % Baso % (Auto) 1.2 H (0.0-1.0) % Sodium 138 (135-145) mmol/L Potassium 3.1 L (3.6-5.0) mmol/L Chloride 102 (101-111) mmol/L Carbon Dioxide 27.0 (21.0-31.0) mmol/L Anion Gap 12.1 BUN 15 (7-18) mg/dL Creatinine 0.6 (0.6-1.3) mg/dL Est Cr Clr Drug Dosing 60.13 mL/min Estimated GFR (MDRD) > 60 Glucose 120 H (74-105) mg/dL Calcium 7.8 L (8.4-10.2) mg/dl Result Diagrams: 08/20/18 01:52 08/20/18 01:52 - Problem List (1) Back pain SNOMED Code(s): 662084589 ICD Code: M54.9 - DORSALGIA, UNSPECIFIED Status: Acute Current Visit: Yes (2) Hypokalemia SNOMED Code(s): 95130264 ICD Code: E87.6 - HYPOKALEMIA Status: Acute Current Visit: No (3) Metastasis from breast cancer SNOMED Code(s): 157416104 ICD Code: C79.9 - SECONDARY MALIGNANT NEOPLASM OF UNSPECIFIED SITE; C50.919 - MALIGNANT NEOPLASM OF UNSP SITE OF UNSPECIFIED FEMALE BREAST Status: Acute Current Visit: No Problem List Initiated/Reviewed/Updated: Yes Orders Last 24hrs: Active Orders 24 hr Category Date Time Status Patient Status [ADT] Routine ADT 08/20/18 08:25 Active Antiembolic Devices [RC] PER UNIT ROUTINE Care 08/20/18 08:27 Active Oxygen Therapy [RC] PRN Care 08/20/18 08:25 Active Peripheral IV Care [RC] . DIRECTED Care 08/20/18 08:27 Active Up With Assistance [RC] ASDIRECTED Care 08/20/18 08:25 Active VTE/DVT Education [RC] PER UNIT ROUTINE Care 08/20/18 08:25 Active Vital Signs [RC] Q4H Care 08/20/18 08:25 Active OT Evaluation and Treatment [CONS] Routine Cons 08/20/18 08:29 Active PT Evaluation and Treatment [CONS] Routine Cons 08/20/18 08:29 Active Regular Diet [DIET] Diet 08/20/18 Lunch Active BASIC METABOLIC PANEL,BMP [CHEM] AM Lab 08/21/18 05:11 Ordered CBC WITH AUTO DIFF [HEME] AM Lab 08/21/18 05:11 Ordered Acetaminophen [Tylenol] Med 08/20/18 08:25 Active 650 mg PO Q4H PRN Brimonidine/Timolol [Combigan 0.2%/0.5% Ophth Soln] Med 08/20/18 09:00 Ordered 1 drop EYEBOTH Q12HR Docusate Sodium [Colace] Med 08/20/18 08:25 Active 100 mg PO BID PRN Escitalopram [Lexapro] Med 08/20/18 09:00 Active 10 mg PO DAILY Everolimus [Afinitor] Med 08/20/18 09:00 Ordered 10 mg PO DAILY Exemestane [Exemestane] Med 08/20/18 09:00 Ordered 25 mg PO DAILY Ibuprofen [Motrin] Med 08/20/18 08:25 Active 400 mg PO Q6H PRN Latanoprost [Xalatan 0.005% Ophth Soln] Med 08/20/18 21:00 Ordered DOSE ml EYEBOTH BEDTIME Lidocaine 5% [Lidoderm 5%] Med 08/20/18 09:00 Active 700 mg TOP DAILY Loperamide [Imodium] Med 08/20/18 08:22 Ordered 4 mg PO QID PRN Morphine [MS Contin] Med 08/20/18 09:00 Active 15 mg PO BID Omeprazole Med 08/20/18 09:00 Ordered 20 mg PO DAILY Patient's Own Medication [Ptom] Med 08/20/18 08:22 Active 0 each PO Q8H PRN Remove Patch Med 08/20/18 21:00 Active 1 ea TRDERM BEDTIME Sodium Chloride 0.9% [Saline Flush] Med 08/20/18 08:25 Active 10 ml FLUSH ASDIRECTED PRN Zolpidem [Ambien] Med 08/20/18 08:25 Active 5 mg PO BEDTIME PRN hydrOXYzine HCl [Atarax] Med 08/20/18 08:22 Active 25 mg PO TID PRN oxyCODONE Med 08/20/18 08:22 Active 5 mg PO Q6H PRN Antiembolic Hose [OM.PC] Per Unit Routine Oth 08/20/18 08:26 Ordered Peripheral IV Insertion Adult [OM.PC] Routine Oth 08/20/18 08:25 Ordered Saline Lock Insert [OM.PC] Routine Oth 08/20/18 08:25 Ordered Resuscitation Status Routine Resus Stat 08/20/18 08:25 Ordered Medication Orders Acetaminophen (Tylenol) 650 mg PO Q4H PRN PRN Reason: Pain (Mild 1-3)/fever Docusate Sodium (Colace) 100 mg PO BID PRN PRN Reason: Constipation Escitalopram Oxalate (Lexapro) 10 mg PO DAILY [facility] Hydroxyzine HCl (Atarax) 25 mg PO TID PRN PRN Reason: Itching Ibuprofen (Motrin) 400 mg PO Q6H PRN PRN Reason: Pain (moderate 4-6) Latanoprost (Xalatan 0.005% Ophth Soln) ml EYEBOTH BEDTIME [facility] Lidocaine (Lidoderm 5%) 700 mg TOP DAILY [facility] Loperamide HCl (Imodium) 4 mg PO QID PRN PRN Reason: Diarrhea Miscellaneous Information (Remove Patch) 1 ea TRDERM BEDTIME [facility] Morphine Sulfate (Ms Contin) 15 mg PO BID [facility] Non-Formulary Medication (Brimonidine/Timolol [Combigan 0.2%/0.5% Ophth Soln]) 1 drop EYEBOTH Q12HR [facility] Non-Formulary Medication (Everolimus [Afinitor]) 10 mg PO DAILY [facility] Non-Formulary Medication (Exemestane [Exemestane]) 25 mg PO DAILY [facility] Omeprazole (Omeprazole) 20 mg PO DAILY [facility] Oxycodone HCl (Oxycodone) 5 mg PO Q6H PRN PRN Reason: Pain Ondansetron Hcl 8 Mg (Pt's Own Med) 0 each PO Q8H PRN PRN Reason: Nausea/Vomiting Sodium Chloride (Saline Flush) 10 ml FLUSH ASDIRECTED PRN PRN Reason: Keep Vein Open Zolpidem Tartrate (Ambien) 5 mg PO BEDTIME PRN PRN Reason: Sleep Assessment/Plan Comment:: 77-year-old with a history of breast cancer, bone metastatic lesions. Presented with uncontrolled pain Back pain. Will continue MS Contin, oxycodone as it was set up by palliative care recently. Add Lidoderm patch Acute encephalopathy, confusion Secondary to narcotics We'll follow Metastatic breast cancer Continue chemotherapy medications Hypoxemia noted in the emergency room Chest x-ray shows no CHF, infiltrate We'll supplement oxygen and monitor as needed Thrombocytopenia Likely secondary to chemotherapy Hypokalemia We'll supplement and follow Will likely need continued home supplement since this was present on prior admission at [facility] as well DVT prophylaxis with subcutaneous heparin as long as platelets are about 50s
[2018-08-20] MEDS: Lidocaine 5% 700 MG Patch TOP SCH (10:37)
[2018-08-20] MEDS: ESCITALOPRAM 10 MG PO SCH (10:38)
[2018-08-20] MEDS: MORPHINE 15 MG PO SCH ×2 (10:38→20:44)
[2018-08-20] MEDS: BRIMONIDINE EYEBOTH SCH ×2 (12:42→20:46)
[2018-08-20] MEDS: TIMOLOL EYEBOTH SCH ×2 (12:42→20:46)
[2018-08-20] MEDS: Omeprazole 20 MG Cap.CR PO SCH (12:42)
[2018-08-20] MEDS: EVEROLIMUS 10 MG PO SCH (12:43)
[2018-08-20] MEDS: Sodium Chloride 0.9% 10 ML Syringe FLUSH PRN (12:46)
[2018-08-20] MEDS: EXEMESTANE 25 MG PO SCH (12:46)
[2018-08-20] MEDS: Latanoprost 0.005% Ophth Soln 2.5 ML Bottle EYEBOTH SCH (20:46)
[2018-08-21] MEDS: Omeprazole 20 MG Cap.CR PO SCH (06:09)
[2018-08-21 07:34] LABS: ANION GAP 13.9; CHLORIDE,CL 104 mmol/L (101-111); SODIUM,NA 137 mmol/L (135-145)
[2018-08-21] MEDS ORDERED: Bisacodyl 10 MG Supp RECTAL PRN (10:24)
[2018-08-21] MEDS: Lidocaine 5% 700 MG Patch TOP SCH (10:31)
[2018-08-21] MEDS: ESCITALOPRAM 10 MG PO SCH (10:36)
[2018-08-21] MEDS: TIMOLOL EYEBOTH SCH ×2 (10:37→20:57)
[2018-08-21] MEDS: BRIMONIDINE EYEBOTH SCH ×2 (10:37→20:57)
[2018-08-21] MEDS: MORPHINE 15 MG PO SCH ×3 (10:46→21:02)
[2018-08-21] MEDS: EVEROLIMUS 10 MG PO SCH (10:48)
[2018-08-21] MEDS: EXEMESTANE 25 MG PO SCH (10:49)
[2018-08-21] MEDS: Dexamethasone 2 MG Tab PO SCH ×3 (12:49→21:00)
[2018-08-21] MEDS: Polyethylene Glycol 3350 Powder 17 GM Packet PO SCH (12:49)
[2018-08-21] MEDS: Latanoprost 0.005% Ophth Soln 2.5 ML Bottle EYEBOTH SCH (20:56)
[2018-08-21] MEDS: Sodium Chloride 0.9% 10 ML Syringe FLUSH PRN (21:12)
[2018-08-22] MEDS: Omeprazole 20 MG Cap.CR PO SCH (05:52)
[2018-08-22] MEDS: Polyethylene Glycol 3350 Powder 17 GM Packet PO SCH ×2 (10:46→10:55)
[2018-08-22] MEDS: Lidocaine 5% 700 MG Patch TOP SCH (10:46)
[2018-08-22] MEDS: ESCITALOPRAM 10 MG PO SCH (10:47)
[2018-08-22] MEDS: EXEMESTANE 25 MG PO SCH (10:47)
[2018-08-22] MEDS: EVEROLIMUS 10 MG PO SCH (10:49)
[2018-08-22] MEDS: TIMOLOL EYEBOTH SCH (10:51)
[2018-08-22] MEDS: MORPHINE 15 MG PO SCH (10:51)
[2018-08-22] MEDS: BRIMONIDINE EYEBOTH SCH (10:51)
[2018-08-22] MEDS: Dexamethasone 2 MG Tab PO SCH ×2 (10:52→13:26)
[2018-08-22] MEDS: Sodium Chloride 0.9% 10 ML Syringe FLUSH PRN (12:03)
--- NOTE | 2018-08-22 14:57 | PN ---
DATE: 08/21/2018 SUBJECTIVE: Mrs. 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 She is currently receiving radiation therapy as well as oral chemotherapy. She fell on the evening of admission. She had been on the toilet, but flipped off. There were no injuries. No head trauma. No loss of consciousness, but her back pain has increased. She is on pain medication both long-acting and immediate, but was unable to manage the pain and came to the emergency room for further evaluation. In the emergency department, a chest x-ray as well as x-ray of the pelvis were performed. No acute injuries were found on the chest x-ray. X-rays of the pelvis were compared to an MRI done in 2017 and showed no evidence for any acute fracture. She was admitted for further observation and pain management. Her usual medications were continued including MS Contin and oxycodone, but she still continued to have pain. This morning, we decided to add dexamethasone and we started her on 2 mg by mouth 4 times a day scheduled. By the afternoon, she stated that she was feeling somewhat better and our plan at this point is to continue the dexamethasone in tapering doses. She otherwise has no other new complaints. No swallowing difficulties. No headache. No chest pain or shortness of breath. No abdominal pain. Appetite is only fair at best. She is drinking fluids. Vital signs are stable and she has remained afebrile since admission. PHYSICAL EXAMINATION: General: She is lying comfortably in bed. Her was present. She is awake, alert, and oriented. She did not appear to be in distress. She does look chronically ill. Vital Signs: Blood pressure 111/54, pulse 76, respiratory rate 18, oxygen saturation 94% on room air, temperature 99.4, weight 112 pounds. HEENT: Unremarkable. ENT was clear. Chest: Showed diminished bilateral breath sounds. Heart: Showed regular rate and rhythm. Abdomen: Benign. Neurological: She is intact. IMPRESSION: A 77-year-old lady with history of left breast cancer, now with metastatic disease 15 years after diagnosis with treatment as above. Presents after a fall at home and unable to manage the pain due to her metastatic disease to the lumbosacral pelvic area. PLAN: We will continue current medications and we have added dexamethasone 2 mg 4 times a day scheduled, which seems to be helping. We also talked about the need to try to stay ahead of her pain as opposed to treating it after the pain has become worse. This was a discussion that was started by her , who strongly encouraged her to stay ahead of the pain. We did talk about whether or not she is having constipation issues with the narcotics and this does not seem to be a problem for her. Case will be signed out to the incoming hospitalist, who will give her instructions regarding the dexamethasone dosing. [facility] /[id number]
--- NOTE | 2018-08-22 15:53 | DISCH ---
ADMITTING DIAGNOSES: 1. Intractable low back pain. 2. Metastatic breast cancer to the spine. DISCHARGE DIAGNOSES: 1. Intractable low back pain, improved with dexamethasone and pain medication. 2. Metastatic breast cancer. Following with Dr. [facility] next week. 3. Breast cancer with metastasis to the bone. 4. Acute encephalopathy, resolved. 5. Hypoxemia in the ER, resolved. 6. Thrombocytopenia, chemotherapy related. 7. Hypokalemia, improved. HISTORY OF PRESENT ILLNESS: Mrs. Basilia Fuentes is a 77-year-old female with medical history significant for metastatic breast cancer with mets to the bone and also to the spine, admitted to the hospital with complaints of increasing back pain and continued on MS Contin and oxycodone on this admission. We added a low-dose dexamethasone, which has improved her symptoms. She will continue the dexamethasone for the next 1 week and then gradually taper down the dexamethasone after she visits with her primary oncologist. She was also noted to have hypokalemia requiring potassium chloride supplement. She continues to have thrombocytopenia, which is most likely cancer related. She is able to ambulate without any difficulty. She is encouraged to use a walker to avoid any falls and also to help with her pain. She will need home health care referral as she has generalized debility from this increasing back pain from metastatic breast cancer. She will need help with halfway care for medication monitoring as she is on pain medication, which could potentially lead to acute confusion like she had before she came in with acute encephalopathic state, which got resolved. She is also prescribed stool softeners to avoid any complications with constipation. Home health care arrangements will be made along with the physical therapy and occupational therapy to help with her ambulation and prevent her falls. She is discharged home in stable condition. She is advised to follow with her primary care physician in the next 1 week of time and to follow with [facility] as scheduled. DISCHARGE MEDICATIONS: Include: 1. Tylenol 1000 mg every 6 hours as needed for pain. 2. Combigan ophthalmic solution 1 drop twice a day. 3. Dexamethasone 2 mg 4 times a day. 4. Docusate sodium 100 mg twice a day. 5. Lexapro 10 mg daily. 6. Everolimus 10 mg daily. 7. Exemestane 25 mg daily. 8. Xalatan ophthalmic 1 drop to eye at bedtime. 9. Letrozole 1 tablet daily. 10.Lidoderm transdermal patch for 1 week. 11.Imodium 4 mg every 4 hours as needed for diarrhea. 12.MS Contin 15 mg twice a day. 13.Omeprazole 20 mg daily. 14.Ondansetron 8 mg every 8 hours as needed for pain, nausea, and vomiting. 15.Ibrance 1 cap daily. 16.Compazine 10 mg every 6 hours as needed for nausea and vomiting. 17.Hydroxyzine 25 mg 3 times a day as needed for itching. 18.Oxycodone 5 mg every 6 hours as needed for pain. PHYSICAL EXAMINATION ON THE DAY OF DISCHARGE: Vital Signs: Temperature of 98.6, pulse of 75, blood pressure 128/55, respiratory rate of 20, saturating at 98% on room air. General Appearance: The patient is well oriented to time, place, and person. Follows commands spontaneously. Cardiovascular System: S1 and S2 heard with normal intensity. No gallops. Respiratory System: Clear to auscultation bilaterally. No wheeze. No crepitations. Abdomen: Soft. Bowel sounds positive. Nontender. No rigidity. Extremities: No edema in bilateral lower extremities. Neurology: No gross focal neurological deficit. CONDITION ON ADMISSION: Poor. CONDITION ON DISCHARGE: Stable. DISPOSITION: Discharged to home with home health care. ACTIVITY: As tolerated. Please use walker to avoid any falls. DIET: Cardiac healthy diet. FOLLOWUP: Follow with primary care physician in the next 1 week of time and to follow with [facility] with primary oncology in the next 1 week. [facility] /[id number]
== END 2018-08-22 15:00 | disposition home or self-care (01) ==
LOC: DL.ED 01:28 → UNDOADMOB 06:07 → DL.MS 06:07
PROVIDERS: ADMIT Internal Medicine; ATTEND Internal Medicine
DX: G89.3 Neoplasm related pain (acute) (chronic) (principal); C50.919 Malignant neoplasm of unspecified site of unspecified female breast; C79.51 Secondary malignant neoplasm of bone; G92 Toxic encephalopathy; T40.605A Adverse effect of unspecified narcotics, initial encounter; D69.59 Other secondary thrombocytopenia; T45.1X5A Adverse effect of antineoplastic and immunosuppressive drugs, initial encounter; E87.6 Hypokalemia; R09.02 Hypoxemia; Z88.0 Allergy status to penicillin; Z88.2 Allergy status to sulfonamides; Z90.12 Acquired absence of left breast and nipple; Z87.891 Personal history of nicotine dependence; Z79.891 Long term (current) use of opiate analgesic; Z79.899 Other long term (current) drug therapy
CPT/HCPCS: 36415; 71045; 72170; 80048; 85025; 96365; 96366; 96368; 96375; 96376; 97165; 99284; A4217; A9270; G0378; J1170; J1642; J2060; J2765; J3480; J7030; J8540; 97162-GP; 99217; 99218; 99225

== ENCOUNTER 2018-09-07 18:03 | Emergency (ER) | payer MEDICARE, OTHER ==
[2018-09-07] MEDS ORDERED: Ondansetron 4 MG/2 ML SDV IV ONE (19:17)
[2018-09-07] MEDS ORDERED: fentaNYL 100 MCG/2 ML SDV IVPUSH ONE (19:20)
[2018-09-07 19:37] LABS: ANION GAP 10.5; CHLORIDE,CL 101 mmol/L (101-111); SODIUM,NA 133 mmol/L (135-145)
[2018-09-07] MEDS ORDERED: HYDROmorphone 1 MG/ML Syringe IVPUSH ONE ×2 (20:12→21:44)
--- NOTE | 2018-09-07 21:14 | EDM.PDOC ---
ED HPI GENERAL MEDICAL PROBLEM - General Chief Complaint: General Stated Complaint: PAIN/[phone] Time Seen by Provider: 09/07/18 19:10 Source of Information: Reports: Patient, Family, RN History Limitations: Reports: No Limitations - History of Present Illness INITIAL COMMENTS - FREE TEXT/NARRATIVE: C/O pain to mid and low back, receiving radiation therapy in same area. Hx breast Cancer with mets. Appetite decreased, tolerating ensure. Foods all have off taste. Unable to get pain under control with, oxycodone, ibuprofen and MS contin. Hx similar episodes of pain, hospitalized prior. Last radiation yesterday. Mid left abdominal pain, notes feeling constipated. No BM today, took softener 3 times, usually only one time daily. 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) Generalized Pain Score (Numeric/FACES): 6 - Related Data Allergies Allergy/AdvReac Type Severity Reaction Status Date / Time amoxicillin Allergy Diarrhea Verified 09/07/18 18:25 Sulfa (Sulfonamide Allergy Diarrhea Verified 09/07/18 18:25 Antibiotics) Home Meds: Home Meds Brimonidine/Timolol [Combigan 0.2%/0.5% Ophth Soln] 1 drop EYEBOTH Q12HR [History] Escitalopram [Lexapro] 10 mg PO DAILY 05/20/13 [History] Latanoprost [Xalatan 0.005% Ophth Soln] 1 drop EYEBOTH BEDTIME 05/20/13 [History ] Loperamide [Imodium] 2 mg PO QID PRN 05/20/13 [History] Omeprazole 20 mg PO DAILY 05/20/13 [History] Acetaminophen 1,000 mg PO Q6H PRN 08/20/18 [History] Everolimus [Afinitor] 10 mg PO DAILY 08/20/18 [History] Exemestane 25 mg PO DAILY 08/20/18 [History] Morphine [MS Contin] 15 mg PO Q12H 08/20/18 [History] Ondansetron HCl [Ondansetron] 8 mg PO Q8H PRN 08/20/18 [History] hydrOXYzine HCl [hydrOXYzine] 25 mg PO TID PRN 08/20/18 [History] oxyCODONE 5 mg PO Q6H PRN 08/20/18 [History] Docusate Sodium [Colace] 100 mg PO BID PRN #14 cap 08/22/18 [Rx] Lidocaine 5% [Lidoderm 5%] 700 mg TOP DAILY #7 patch 08/22/18 [Rx] dexAMETHasone [Dexamethasone] 2 mg PO QID #30 tablet 08/22/18 [Rx] Carboxymethylcellulose Sodium [Refresh Liquigel 1%] 1 drop EYEBOTH DAILY [History] Clobetasol [Clobetasol Propionate 0.05% Cream] 15 gm TOP BID 09/07/18 [History] Ibuprofen 400 mg PO TID PRN 09/07/18 [History] Lifitegrast [Xiidra] 1 each EYEBOTH DAILY 09/07/18 [History] Menthol/Camphor [Sarna Anti-Itch] 1 applic TOP DAILY 09/07/18 [History] Potassium Chloride [Klor-Con] 20 meq PO DAILY 09/07/18 [History] Tafluprost/Pf [Zioptan 0.0015% Eye Drops] 1 drop EYEBOTH DAILY 09/07/18 [History ] Past Medical History HEENT History: Reports: Glaucoma 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 History: Reports: Other (See Below) Other 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 History: left breast 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: Hematologic History: Reports: B12 Deficiency Immunologic History: Reports: Immunosuppression Oncologic (Cancer) History: Reports: Bone, Breast - Past Surgical History Female Surgical History: Reports: Mastectomy, Other (See Below) Other Female Surgeries/Procedures: left breast Social & Family History - Family History Family Medical History: Noncontributory - Tobacco Use Smoking Status *Q: Never Smoker Second Hand Smoke Exposure: No - Caffeine Use Caffeine Use: Reports: None - Recreational Drug Use Recreational Drug Use: No ED ROS GENERAL - Review of Systems Review Of Systems: See Below Constitutional: Reports: Decreased Appetite, Weight Loss. Denies: Fever HEENT: Reports: No Symptoms Respiratory: Reports: No Symptoms Cardiovascular: Reports: No Symptoms GI/Abdominal: Reports: Abdominal Pain (mid left), Constipation (no bm today last yesterday, 3 stool softeners today without results), Decreased Appetite : Denies: Dysuria, Frequency, Hematuria Musculoskeletal: Reports: Back Pain Skin: Reports: No Symptoms Neurological: Reports: No Symptoms ED EXAM, GENERAL - Physical Exam Exam: See Below Exam Limited By: No Limitations General Appearance: Alert, Anxious, Mild Distress Eye Exam: Bilateral Eye: EOMI, PERRL Ears: Normal External Exam Nose: Normal Inspection Throat/Mouth: Normal Inspection, Normal Lips Head: Atraumatic, Normocephalic Neck: Normal Inspection, Full Range of Motion Respiratory/Chest: No Respiratory Distress, Lungs Clear, Normal Breath Sounds Cardiovascular: Normal Peripheral Pulses, Regular Rate, Rhythm GI/Abdominal: Normal Bowel Sounds, Soft, Tender (mid epigastric), Abnormal Bowel Sounds (hypoactive left upper). No: Distended, Guarding Back Exam: Paraspinal Tenderness (sacral), Vertebral Tenderness (thoarcic) Extremities: Normal Inspection, Normal Range of Motion Neurological: Alert, Oriented Psychiatric: Anxious Skin Exam: Warm, Dry, Intact, Normal Color Course - Vital Signs Last Recorded V/S: Last Vital Signs Temp 98.2 F 09/07/18 18:33 Pulse 82 09/07/18 21:24 Resp 15 09/07/18 21:24 BP 177/66 H 09/07/18 21:24 Pulse Ox 100 09/07/18 21:24 - Orders/Labs/Meds Orders: Active Orders 24 hr Category Date Time Status Abdomen 1V Upright [CR] Urgent Exams 09/07/18 19:21 Taken Labs: Laboratory Tests 09/07/18 09/07/18 Range/Units 19:10 19:10 WBC 2.3 L (5.0-10.0) 10^3/uL RBC 3.83 L (4.2-5.4) 10^6/uL Hgb 10.3 L (12.0-16.0) g/dL Hct 31.3 L (37.0-47.0) % MCV 81.7 (80-100) fL MCH 26.9 L (27.0-34.0) pg MCHC 32.9 L (33.0-35.0) g/dL Plt Count 34 L* (150-450) 10^3/uL Neut % (Auto) 83.4 H (42.2-75.2) % Lymph % (Auto) 8.3 L (20.5-50.1) % Mcdowell % (Auto) 4.4 (2-8) % Eos % (Auto) 2.6 (1.0-3.0) % Baso % (Auto) 1.3 H (0.0-1.0) % Sodium 133 L (135-145) mmol/L Potassium 3.5 L (3.6-5.0) mmol/L Chloride 101 (101-111) mmol/L Carbon Dioxide 25.0 (21.0-31.0) mmol/L Anion Gap 10.5 BUN 18 (7-18) mg/dL Creatinine 0.6 (0.6-1.3) mg/dL Est Cr Clr Drug Dosing 57.82 mL/min Estimated GFR (MDRD) > 60 BUN/Creatinine Ratio 30.00 Glucose 102 (74-105) mg/dL Calcium 7.6 L (8.4-10.2) mg/dl Total Bilirubin 1.1 H (0.2-1.0) mg/dL AST 24 (10-42) IU/L ALT 35 (10-60) IU/L Alkaline Phosphatase 33 L (42-121) IU/L Total Protein 5.2 L (6.7-8.2) g/dl Albumin 2.9 L (3.2-5.5) g/dl Globulin 2.3 Albumin/Globulin Ratio 1.26 Meds: Medications Discontinued Medications Generic Name Dose Route Start Last Admin Trade Name Freq PRN Reason Stop Dose Admin Fentanyl 50 mcg 09/07/18 19:20 09/07/18 19:31 Sublimaze IVPUSH 09/07/18 19:21 50 mcg ONETIME ONE Administration Hydromorphone HCl 0.5 mg 09/07/18 20:12 09/07/18 20:16 Dilaudid IVPUSH 09/07/18 20:13 0.5 mg ONETIME ONE Administration Hydromorphone HCl 1 mg 09/07/18 21:44 09/07/18 21:55 Dilaudid IVPUSH 09/07/18 21:45 1 mg ONETIME ONE Administration Ondansetron HCl 4 mg 09/07/18 19:17 09/07/18 19:31 Zofran IV 09/07/18 19:18 4 mg ONETIME ONE Administration - Re-Assessments/Exams Free Text/Narrative Re-Assessment/Exam: 09/07/18 21:55 No relief with Fentanyl. Pain 4/10. Minimal relief per patient from dilaudid but does rest. Notes pain at worst can be 8/10. Tx Altru via LRAS. For pain control and ileus. Departure - Departure Time of Disposition: 21:57 Disposition: DC/Tfer to Acute Hospital 02 Condition: Undetermined Clinical Impression: Cancer, Pancytopenia, Pain, Pain after radiation therapy Breast cancer metastasized to bone Qualifiers: Laterality: unspecified laterality Qualified Code(s): C50.919 - Malignant neoplasm of unspecified site of unspecified female breast - Discharge Information *PRESCRIPTION DRUG MONITORING PROGRAM REVIEWED*: Not Applicable *COPY OF PRESCRIPTION DRUG MONITORING REPORT IN PATIENT JANETT: Not Applicable Referrals: Nadya Rueda PA [Primary Care Provider] - Forms: ED Department Discharge - My Orders Last 24 Hours: My Active Orders 09/07/18 19:21 Abdomen 1V Upright [CR] Urgent - Assessment/Plan Last 24 Hours: My Active Orders 09/07/18 19:21 Abdomen 1V Upright [CR] Urgent
== END 2018-09-07 22:00 ==
LOC: DL.ED 18:03
DX: G89.3 Neoplasm related pain (acute) (chronic) (principal); C50.919 Malignant neoplasm of unspecified site of unspecified female breast; C79.51 Secondary malignant neoplasm of bone; D61.818 Other pancytopenia; Z88.1 Allergy status to other antibiotic agents; Z88.2 Allergy status to sulfonamides; Z79.899 Other long term (current) drug therapy
CPT/HCPCS: 36415; 74018; 80053; 85025; 96374; 96375; 96376; 99285; J1170; J2405; J3010

== ENCOUNTER 2018-12-27 17:58 | Emergency (ER) | payer MEDICARE, OTHER ==
--- NOTE | 2018-12-27 19:15 | EDM.PDOC ---
ED HPI GENERAL MEDICAL PROBLEM - General Chief Complaint: Abdominal Pain Stated Complaint: PAIN WHERE FEEDING TUBE IS AT PER PT Time Seen by Provider: 12/27/18 19:10 Source of Information: Reports: Patient, Family History Limitations: Reports: No Limitations - History of Present Illness INITIAL COMMENTS - FREE TEXT/NARRATIVE: c/o pain at feeding tube insertion site past few days. has mets CA from breast. on chemo and WBC has been low. has been in touch with GF re tube problems and had it pushed in further 2x already but it is still bothering her. able to eat small amount like toast but rest go through the tube. pt wants it removed Sunday but unable to wait that long due to pain. take pain Rx. and does have BM though not daily. Left Abdominal Pain Score (Numeric/FACES): 8 - Related Data Allergies Allergy/AdvReac Type Severity Reaction Status Date / Time amoxicillin Allergy Diarrhea Verified 12/27/18 18:12 Sulfa (Sulfonamide Allergy Diarrhea Verified 12/27/18 18:12 Antibiotics) Home Meds: Home Meds Brimonidine/Timolol [Combigan 0.2%/0.5% Ophth Soln] 1 drop EYEBOTH Q12HR [History] Escitalopram [Lexapro] 10 mg PO DAILY 05/20/13 [History] Loperamide [Imodium] 2 mg PO QID PRN 05/20/13 [History] Omeprazole 20 mg PO DAILY 05/20/13 [History] Acetaminophen 1,000 mg PO Q6H PRN 08/20/18 [History] Docusate Sodium [Colace] 100 mg PO BID PRN #14 cap 08/22/18 [Rx] Carboxymethylcellulose Sodium [Refresh Liquigel 1%] 1 drop EYEBOTH DAILY [History] Ibuprofen 400 mg PO TID PRN 09/07/18 [History] Menthol/Camphor [Sarna Anti-Itch] 1 applic TOP DAILY 09/07/18 [History] Potassium Chloride [Klor-Con] 20 meq PO DAILY 09/07/18 [History] Tafluprost/Pf [Zioptan 0.0015% Eye Drops] 1 drop EYEBOTH DAILY 09/07/18 [History ] LORazepam 0.5 mg PO ASDIRECTED PRN 12/27/18 [History] Metoprolol Tartrate 50 mg PO DAILY 12/27/18 [History] Mirtazapine 15 mg PO ASDIRECTED PRN 12/27/18 [History] Prochlorperazine [Compazine] 10 mg PO ASDIRECTED PRN 12/27/18 [History] Past Medical History HEENT History: Reports: Glaucoma, Impaired Vision 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 History: Reports: Other (See Below) Other 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 History: 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: Psychiatric History: Reports: Anxiety, Depression Hematologic History: Reports: B12 Deficiency Immunologic History: Reports: Immunosuppression Oncologic (Cancer) History: Reports: Bone, Breast Dermatologic History: Reports: Urticaria - Past Surgical History HEENT Surgical History: Reports: Eye Surgery GI Surgical History: Reports: Other (See Below) Other GI Surgeries/Procedures: G Tube placed for feedings due to weight loss Female Surgical History: Reports: Mastectomy Other Female Surgeries/Procedures: left breast Oncologic Surgical History: Reports: Mastectomy Other Oncologic Surgeries/Procedures: Receiving injections now due to low white count from Chemo therapy. Hoping to be able to have chemo this Sunday in [place]. Social & Family History - Family History Family Medical History: Noncontributory - Tobacco Use Smoking Status *Q: Former Smoker Used Tobacco, but Quit: Yes Month/Year Tobacco Last Used: 1968 - Caffeine Use Caffeine Use: Reports: Coffee ED ROS GENERAL - Review of Systems Review Of Systems: ROS reveals no pertinent complaints other than HPI. ED EXAM, GI/ABD - Physical Exam Exam: See Below Exam Limited By: No Limitations General Appearance: Alert, WD/WN, Mild Distress, Other (discomfort) Ears: Hearing Grossly Normal Throat/Mouth: Normal Voice, No Airway Compromise Head: Atraumatic Neck: Non-Tender, Full Range of Motion Respiratory/Chest: No Respiratory Distress Cardiovascular: Regular Rate, Rhythm GI/Abdominal Exam: Soft, Tender, Other (tender over LUQ region, ). No: Distended, Guarding, Rigid, Rebound Neurological: Alert, Oriented, Normal Cognition, Normal Gait, No Motor/Sensory Deficits Psychiatric: Tearful Skin Exam: Warm, Dry, Normal Color Lymphatic: No Adenopathy Course - Vital Signs Last Recorded V/S: Last Vital Signs Temp 36.7 C 12/27/18 20:00 Pulse 62 12/27/18 20:00 Resp 18 12/27/18 20:00 BP 118/34 L 12/27/18 20:00 Pulse Ox 96 12/27/18 20:00 - Orders/Labs/Meds Labs: Laboratory Tests 12/27/18 12/27/18 12/27/18 Range/Units 19:25 19:25 19:25 WBC 18.8 H (5.0-10.0) 10^3/uL RBC 3.66 L (4.2-5.4) 10^6/uL Hgb 10.3 L (12.0-16.0) g/dL Hct 32.9 L (37.0-47.0) % MCV 89.9 D (80-100) fL MCH 28.1 (27.0-34.0) pg MCHC 31.3 L (33.0-35.0) g/dL Plt Count 142 L D (150-450) 10^3/uL Neut % (Auto) 72.6 (42.2-75.2) % Lymph % (Auto) 8.9 L (20.5-50.1) % Shannon % (Auto) 18.2 H (2-8) % Eos % (Auto) 0.1 L (1.0-3.0) % Baso % (Auto) 0.2 (0.0-1.0) % Add Manual Diff Yes Neutrophils % (Manual) 30 L (42-75) % Band Neutrophils % 38 % Lymphocytes % (Manual) 11 L (20-50) % Atypical Lymphs % 0 % Monocytes % (Manual) 20 H (2-8) % Eosinophils % (Manual) 1 (1-3) % Basophils % (Manual) 0 Hypochromasia 1+ slight Poikilocytosis 1+ slight Anisocytosis 1+ slight Sodium 138 (135-145) mmol/L Potassium 3.8 (3.6-5.0) mmol/L Chloride 102 (101-111) mmol/L Carbon Dioxide 27.0 (21.0-31.0) mmol/L Anion Gap 12.8 BUN 16 (7-18) mg/dL Creatinine 0.7 (0.6-1.3) mg/dL Est Cr Clr Drug Dosing 48.19 mL/min Estimated GFR (MDRD) > 60 BUN/Creatinine Ratio 22.85 Glucose 85 (74-105) mg/dL Lactic Acid 1.4 (0.5-2.2) mmol/L Calcium 8.7 (8.4-10.2) mg/dl Total Bilirubin 0.8 (0.2-1.0) mg/dL AST 27 (10-42) IU/L ALT 19 (10-60) IU/L Alkaline Phosphatase 97 (42-121) IU/L Total Protein 6.1 L (6.7-8.2) g/dl Albumin 3.5 (3.2-5.5) g/dl Globulin 2.6 Albumin/Globulin Ratio 1.35 Amylase 30 (28-100) U/L Lipase 26 (22-51) U/L - Re-Assessments/Exams Free Text/Narrative Re-Assessment/Exam: 12/27/18 20:[address] Olivares oncologist @ who rec' transf for better evaluation. situation discussed with pt & spouse, pt states feels better now and wants to wait instead of going tonight but will return if things get worse. Departure - Departure Time of Disposition: 20:36 Disposition: Home, Self-Care 01 Condition: Fair Clinical Impression: Abdominal pain Qualifiers: Abdominal location: epigastric Qualified Code(s): R10.13 - Epigastric pain Breast cancer Qualifiers: Breast location: unspecified site of breast Estrogen receptor status: unspecified Patient sex: female Laterality: unspecified laterality Qualified Code(s): C50.919 - Malignant neoplasm of unspecified site of unspecified female breast Leukocytosis, unspecified Qualifiers: Leukocytosis type: bandemia Qualified Code(s): D72.825 - Bandemia - Discharge Information Forms: ED Department Discharge Additional Instructions: 1) return if there is any change or concern
[2018-12-27 19:51] LABS: ANION GAP 12.8; CHLORIDE,CL 102 mmol/L (101-111); SODIUM,NA 138 mmol/L (135-145)
== END 2018-12-27 20:45 | disposition home or self-care (01) ==
LOC: DL.ED 17:58
DX: R10.13 Epigastric pain (principal); C50.919 Malignant neoplasm of unspecified site of unspecified female breast; D72.825 Bandemia; F41.9 Anxiety disorder, unspecified; F32.9 Major depressive disorder, single episode, unspecified; Z90.12 Acquired absence of left breast and nipple; Z87.891 Personal history of nicotine dependence; Z88.1 Allergy status to other antibiotic agents; Z88.2 Allergy status to sulfonamides; Z79.899 Other long term (current) drug therapy
CPT/HCPCS: 36415; 74018; 80053; 82150; 83605; 83690; 85025; 99284-25

== ENCOUNTER 2019-08-10 11:05 | Emergency (ER) | payer MEDICARE, OTHER ==
[2019-08-10] MEDS ORDERED: Ondansetron 4 MG/2 ML SDV IV ONE (11:27)
--- NOTE | 2019-08-10 11:27 | EDM.PDOC ---
ED HPI GENERAL MEDICAL PROBLEM - General Chief Complaint: Gastrointestinal Problem Stated Complaint: CANCER NAUSEA Time Seen by Provider: 08/10/19 11:22 Source of Information: Reports: Patient, Old Records, RN, RN Notes Reviewed History Limitations: Reports: No Limitations - History of Present Illness INITIAL COMMENTS - FREE TEXT/NARRATIVE: Pt presents to ER from home by POV with c/o nausea, no appetite, and feeling dehydrated. Pt states she was in [place] on Sunday, August 07 and received IV fluids for dehydration from her oncologist. She says she called her cancer clinic and was advised to go to the ER in [place] for more IV fluids today. Pt states her cancer pain is well controlled. She denies fever, chills, cough, shortness or breath, or chest pain. She is primarily concerned because she does not have any nausea medication at home. Duration: Chronic, Recurring Location: Reports: Abdomen, Generalized Quality: Reports: Ache ("in bones" due to cancer (chronic per pt)) Severity: Severe Associated Symptoms: Reports: No Other Symptoms - Related Data Allergies Allergy/AdvReac Type Severity Reaction Status Date / Time amoxicillin Allergy Diarrhea Verified 08/10/19 11:18 Sulfa (Sulfonamide Allergy Diarrhea Verified 08/10/19 11:18 Antibiotics) Home Meds: Home Meds Escitalopram [Lexapro] 20 mg PO DAILY 05/20/13 [History] Loperamide [Imodium] 2 mg PO QID PRN 05/20/13 [History] Omeprazole 20 mg PO DAILY 05/20/13 [History] Acetaminophen 1,000 mg PO Q6H PRN 08/20/18 [History] Docusate Sodium [Colace] 100 mg PO BID PRN #14 cap 08/22/18 [Rx] Carboxymethylcellulose Sodium [Refresh Liquigel 1%] 1 drop EYEBOTH DAILY [History] Ibuprofen 400 mg PO TID PRN 09/07/18 [History] Potassium Chloride [Klor-Con] 10 meq PO BID 09/07/18 [History] LORazepam 0.5 mg PO ASDIRECTED PRN 12/27/18 [History] Metoprolol Tartrate 50 mg PO BID 12/27/18 [History] Mirtazapine 15 mg PO BEDTIME 12/27/18 [History] Capecitabine [Xeloda] 1,000 mg PO BID 08/10/19 [History] Ondansetron [Zofran] 8 mg PO Q8H PRN 08/10/19 [History] PACLitaxel Protein-Bound [Abraxane] 100 mg IV ASDIRECTED 08/10/19 [History] Past Medical History HEENT History: Reports: Glaucoma, Impaired Vision 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 History: Reports: Other (See Below) Other 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 History: left breast mastectomy 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: Psychiatric History: Reports: Anxiety, Depression Hematologic History: Reports: B12 Deficiency Immunologic History: Reports: Immunosuppression Oncologic (Cancer) History: Reports: Bone, Breast Dermatologic History: Reports: Urticaria - Past Surgical History HEENT Surgical History: Reports: Eye Surgery GI Surgical History: Reports: Other (See Below) Other GI Surgeries/Procedures: G Tube placed for feedings due to weight loss Female Surgical History: Reports: Mastectomy Other Female Surgeries/Procedures: left breast Oncologic Surgical History: Reports: Mastectomy Other Oncologic Surgeries/Procedures: Receiving injections now due to low white count from Chemo therapy. Hoping to be able to have chemo this Sunday in [place]. Social & Family History - Family History Family Medical History: Noncontributory - Caffeine Use Caffeine Use: Reports: Coffee - Living Situation & Occupation Living situation: Reports: , with Spouse Occupation: Retired ED ROS GENERAL - Review of Systems Review Of Systems: Comprehensive ROS is negative, except as noted in HPI. ED EXAM, GI/ABD - Physical Exam Exam: See Below Exam Limited By: No Limitations General Appearance: Alert, No Apparent Distress, Cachetic, Other (Frail, chronically ill appearing female) Eyes: Bilateral: Normal Appearance (No scleral icterus) Nose: Normal Inspection, Normal Mucosa, No Blood Throat/Mouth: Normal Lips, Normal Voice, No Airway Compromise, Other (Dry oral mucosa) Head: Atraumatic, Normocephalic Neck: Normal Inspection, Supple, Non-Tender, Full Range of Motion. No: Lymphadenopathy (L), Lymphadenopathy (R) Respiratory/Chest: No Respiratory Distress, Lungs Clear, No Accessory Muscle Use , Decreased Breath Sounds. No: Rhonchi, Wheezing, Stridor Cardiovascular: Regular Rate, Rhythm GI/Abdominal Exam: Normal Bowel Sounds, Soft Back Exam: Vertebral Tenderness (Chronic per pt) Extremities: Normal Inspection Neurological: Alert, Oriented, No Motor/Sensory Deficits, Other (Generalized weakness) Psychiatric: Depressed Mood, Flat Affect Skin Exam: Warm, Dry, No Rash, Pallor Course - Vital Signs Last Recorded V/S: Last Vital Signs Temp 96.4 F L 08/10/19 11:19 Pulse 73 08/10/19 11:19 Resp 20 08/10/19 11:19 BP 85/46 L 08/10/19 11:19 Pulse Ox 95 08/10/19 11:19 - Orders/Labs/Meds Orders: Active Orders 24 hr Category Date Time Status CULTURE URINE [RM] Stat Lab 08/10/19 12:11 Received UA W/MICROSCOPIC [URIN] Stat Lab 08/10/19 12:11 Results Labs: Laboratory Tests 08/10/19 08/10/19 08/10/19 Range/Units 11:36 11:36 12:11 WBC 20.2 H (5.0-10.0) 10^3/uL RBC 3.48 L (4.2-5.4) 10^6/uL Hgb 10.7 L (12.0-16.0) g/dL Hct 32.6 L (37.0-47.0) % MCV 93.7 D (80-100) fL MCH 30.7 (27.0-34.0) pg MCHC 32.8 L (33.0-35.0) g/dL Plt Count 128 L (150-450) 10^3/uL Neut % (Auto) 87.1 H (42.2-75.2) % Lymph % (Auto) 6.0 L (20.5-50.1) % [place] % (Auto) 6.6 (2-8) % Eos % (Auto) 0.0 L (1.0-3.0) % Baso % (Auto) 0.3 (0.0-1.0) % Add Manual Diff Yes Neutrophils % (Manual) 63 (42-75) % Band Neutrophils % 25 % Lymphocytes % (Manual) 5 L (20-50) % Monocytes % (Manual) 4 (2-8) % Metamyelocytes % 1 Myelocytes % 1 Blast Cells % 1 Anisocytosis 1+ slight Microcytosis 1+ slight Sodium 137 (136-145) mmol/L Potassium 4.0 (3.5-5.1) mmol/L Chloride 101 (98-107) mmol/L Carbon Dioxide 26 (21-32) mmol/L Anion Gap 14.0 H (7-13) mEq/L BUN 13 (7-18) mg/dL Creatinine 1.05 H (0.55-1.02) mg/dL Est Cr Clr Drug Dosing 31.76 mL/min Estimated GFR (MDRD) 50 BUN/Creatinine Ratio 12.4 (No establ ref range) Glucose 139 H (74-99) mg/dL Calcium 8.3 L (8.5-10.1) mg/dL Total Bilirubin 0.6 (0.2-1.0) mg/dL AST 47 H (15-37) U/L ALT 34 (14-59) U/L Alkaline Phosphatase 236 H (46-116) U/L Total Protein 5.9 L (6.4-8.2) g/dL Albumin 3.0 L (3.4-5.0) g/dL Globulin 2.9 Albumin/Globulin Ratio 1.03 Amylase 32 (25-115) U/L Lipase 152 (73-393) U/L Urine Color Yellow (YELLOW) Urine Appearance Slightly cloudy (CLEAR) Urine pH 6.5 (5.0-9.0) Ur Specific [place] 1.015 (1.005-1.030) Urine Protein Trace H (NEGATIVE) Urine Glucose (UA) Negative (NEGATIVE) Urine Ketones Negative (NEGATIVE) Urine Occult Blood Negative (NEGATIVE) Urine Nitrite Negative (NEGATIVE) Urine Bilirubin Negative (NEGATIVE) Urine Urobilinogen 0.2 (0.2-1.0) mg/dL Ur Leukocyte Esterase Trace H (NEGATIVE) Meds: Medications Discontinued Medications Generic Name Dose Route Start Last Admin Trade Name Prasannaq PRN Reason Stop Dose Admin Sodium Chloride 1,000 mls @ 999 mls/hr 08/10/19 11:28 08/10/19 11:39 Normal Saline IV 08/10/19 12:28 999 mls/hr .BOLUS ONE Administration Ondansetron HCl 4 mg 08/10/19 11:27 08/10/19 11:39 Zofran IV 08/10/19 11:28 4 mg ONETIME ONE Administration Departure - Departure Time of Disposition: 12:31 Disposition: Home, Self-Care 01 Condition: Fair Clinical Impression: Dehydration, Nausea Breast cancer metastasized to bone Qualifiers: Laterality: unspecified laterality Qualified Code(s): C50.919 - Malignant neoplasm of unspecified site of unspecified female breast; C79.51 - Secondary malignant neoplasm of bone - Discharge Information *PRESCRIPTION DRUG MONITORING PROGRAM REVIEWED*: Not Applicable *COPY OF PRESCRIPTION DRUG MONITORING REPORT IN PATIENT JANETT: Not Applicable Instructions: Dehydration, Adult, [id number], Nausea, Adult Forms: ED Department Discharge Additional Instructions: Rx: Zofran ODT 4mg Rx: Prochlorperazine 10mg Drink plenty of fluids. Follow up with your doctor this coming week for recheck. Sepsis Event Note - Focused Exam Vital Signs: Vital Signs Temp Pulse Resp BP Pulse Ox 08/10/19 11:19 96.4 F L 73 20 85/46 L 95 Date Exam was Performed: 08/10/19 Time Exam was Performed: 12:30 - My Orders Last 24 Hours: My Active Orders 08/10/19 12:11 CULTURE URINE [RM] Stat UA W/MICROSCOPIC [URIN] Stat - Assessment/Plan Last 24 Hours: My Active Orders 08/10/19 12:11 CULTURE URINE [RM] Stat UA W/MICROSCOPIC [URIN] Stat
[2019-08-10] MEDS ORDERED: Sodium Chloride 0.9% 1,000 ML IV ONE (11:28)
== END 2019-08-10 12:59 | disposition home or self-care (01) ==
LOC: DL.ED 11:05
DX: E86.0 Dehydration (principal); C50.919 Malignant neoplasm of unspecified site of unspecified female breast; C79.51 Secondary malignant neoplasm of bone; F41.9 Anxiety disorder, unspecified; F32.9 Major depressive disorder, single episode, unspecified; Z88.0 Allergy status to penicillin; Z88.2 Allergy status to sulfonamides; Z79.899 Other long term (current) drug therapy; Z90.12 Acquired absence of left breast and nipple
CPT/HCPCS: 36415; 80053; 81001; 82150; 83690; 85025; 87086; 96361; 96374; 99283; J1642; J2405; J7030; 99284

== ENCOUNTER 2019-09-01 19:50 | Emergency (ER) | payer MEDICARE, OTHER ==
[2019-09-01] MEDS ORDERED: Acetaminophen/HYDROcodone 325-5 MG Tab PO ONE (19:51)
[2019-09-01] MEDS ORDERED: Iopamidol 612 MG/ML 100 ML Bottle IVPUSH ONE (20:43)
[2019-09-01] MEDS ORDERED: Morphine 2 MG/ML Syringe IVPUSH ONE (21:56)
[2019-09-01] MEDS ORDERED: Acetaminophen/oxyCODONE 325-5 MG Tab ONE (23:47)
--- NOTE | 2019-09-01 23:54 | EDM.PDOC ---
"ED HPI GENERAL MEDICAL PROBLEM - General Chief Complaint: Abdominal Pain Stated Complaint: lower stomach pain Time Seen by Provider: 09/01/19 19:55 Source of Information: Reports: Patient, Family History Limitations: Reports: No Limitations - History of Present Illness INITIAL COMMENTS - FREE TEXT/NARRATIVE: right side pain tonight started after supper, no nausea vomiting, change in bowel no urinary c/o, hx liver CA last treatment 3 weeks ago. Treatments stopped f/u up on to determine next plan. Hx of mets . No similar pain in past ,took tylenol this afternoon. Stated company most of morning and not used to that much activity then went for drive with and pain seemed to get worse. Reports prior to tonight has not had much pain from cancer. No fever or chills, No nausea or vomiting. no urinary complaints. Pain worse with deep breathing and some movement. Right Lower Abdomen Pain Score (Numeric/FACES): 10 - Related Data Allergies Allergy/AdvReac Type Severity Reaction Status Date / Time amoxicillin Allergy Diarrhea Verified 09/01/19 20:04 Sulfa (Sulfonamide Allergy Diarrhea Verified 09/01/19 20:04 Antibiotics) Home Meds: Home Meds Escitalopram [Lexapro] 20 mg PO DAILY 05/20/13 [History] Loperamide [Imodium] 2 mg PO QID PRN 05/20/13 [History] Omeprazole 20 mg PO DAILY 05/20/13 [History] Acetaminophen 1,000 mg PO Q6H PRN 08/20/18 [History] Docusate Sodium [Colace] 100 mg PO BID PRN #14 cap 08/22/18 [Rx] Carboxymethylcellulose Sodium [Refresh Liquigel 1%] 1 drop EYEBOTH DAILY [History] Ibuprofen 400 mg PO TID PRN 09/07/18 [History] Potassium Chloride [Klor-Con] 10 meq PO BID 09/07/18 [History] LORazepam 0.5 mg PO ASDIRECTED PRN 12/27/18 [History] Mirtazapine 15 mg PO BEDTIME 12/27/18 [History] Ondansetron [Zofran] 8 mg PO Q8H PRN 08/10/19 [History] PACLitaxel Protein-Bound [Abraxane] 100 mg IV ASDIRECTED 08/10/19 [History] Megestrol Acetate 40 mg PO QID 09/01/19 [History] Metoprolol Tartrate 50 mg PO BID 09/01/19 [History] Prochlorperazine [Compazine] 10 mg PO ASDIRECTED PRN 09/01/19 [History] Past Medical History HEENT History: Reports: Glaucoma, Impaired Vision 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 History: Reports: Other (See Below) Other 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 History: left breast mastectomy 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: Psychiatric History: Reports: Anxiety, Depression Hematologic History: Reports: B12 Deficiency Immunologic History: Reports: Immunosuppression Oncologic (Cancer) History: Reports: Bone, Breast, Liver Dermatologic History: Reports: Urticaria - Past Surgical History HEENT Surgical History: Reports: Eye Surgery GI Surgical History: Reports: Other (See Below) Other GI Surgeries/Procedures: G Tube placed for feedings due to weight loss Female Surgical History: Reports: Mastectomy Other Female Surgeries/Procedures: left breast Oncologic Surgical History: Reports: Mastectomy Other Oncologic Surgeries/Procedures: Receiving injections now due to low white count from Chemo therapy. Hoping to be able to have chemo this Sunday in [place]. Social & Family History - Family History Family Medical History: Noncontributory - Tobacco Use Smoking Status *Q: Never Smoker Second Hand Smoke Exposure: No - Caffeine Use Caffeine Use: Reports: Coffee - Recreational Drug Use Recreational Drug Use: No - Living Situation & Occupation Living situation: Reports: , with Spouse Occupation: Retired ED ROS GENERAL - Review of Systems Review Of Systems: Comprehensive ROS is negative, except as noted in HPI. ED EXAM, GI/ABD - Physical Exam Exam: See Below Exam Limited By: No Limitations General Appearance: Alert, Mild Distress, Thin Eyes: Bilateral: EOMI Ears: Normal External Exam, Hearing Grossly Normal Nose: Normal Inspection Throat/Mouth: Normal Inspection Head: Atraumatic, Normocephalic Neck: Normal Inspection Respiratory/Chest: No Respiratory Distress, Lungs Clear, Normal Breath Sounds. No: Rales, Rhonchi, Wheezing Cardiovascular: Normal Peripheral Pulses, Regular Rate, Rhythm GI/Abdominal Exam: Normal Bowel Sounds, Soft, Tender (mild Lateral RUQ and mid lateral right). No: Distended, Guarding, Rebound Back Exam: Full Range of Motion Extremities: Normal Inspection, Normal Range of Motion Neurological: Alert, Memory Loss Recent Events (baseline) Psychiatric: Normal Affect, Normal Mood Skin Exam: Warm, Dry, Intact, Normal Color Course - Vital Signs Last Recorded V/S: Last Vital Signs Temp 99.4 F 09/01/19 19:52 Pulse 97 09/01/19 19:52 Resp 18 09/01/19 19:52 BP 119/51 L 09/01/19 19:52 Pulse Ox 99 09/01/19 19:52 - Orders/Labs/Meds Orders: Active Orders 24 hr Category Date Time Status CULTURE BLOOD [BC] Stat Lab 09/01/19 20:00 Ordered CULTURE BLOOD [BC] Stat Lab 09/01/19 20:05 Received CULTURE URINE [RM] Stat Lab 09/01/19 20:26 Received Blood Culture x2 Reflex Set [OM.PC] Stat Oth 09/01/19 19:59 Ordered Labs: Laboratory Tests 09/01/19 09/01/19 09/01/19 Range/Units 20:05 20:05 20:05 WBC 8.2 (5.0-10.0) 10^3/uL RBC 3.65 L (4.2-5.4) 10^6/uL Hgb 11.3 L (12.0-16.0) g/dL Hct 34.8 L (37.0-47.0) % MCV 95.3 (80-100) fL MCH 31.0 (27.0-34.0) pg MCHC 32.5 L (33.0-35.0) g/dL Plt Count 152 (150-450) 10^3/uL Neut % (Auto) 82.7 H (42.2-75.2) % Lymph % (Auto) 8.7 L (20.5-50.1) % [place] % (Auto) 8.2 H (2-8) % Eos % (Auto) 0.2 L (1.0-3.0) % Baso % (Auto) 0.2 (0.0-1.0) % PT 11.0 (9.0-12.0) SEC INR 1.2 (0.9-1.2) Sodium 133 L (136-145) mmol/L Potassium 4.0 (3.5-5.1) mmol/L Chloride 98 (98-107) mmol/L Carbon Dioxide 25 (21-32) mmol/L Anion Gap 14.0 H (7-13) mEq/L BUN 24 H (7-18) mg/dL Creatinine 1.02 (0.55-1.02) mg/dL Est Cr Clr Drug Dosing 32.84 mL/min Estimated GFR (MDRD) 52 BUN/Creatinine Ratio 23.5 (No establ ref range) Glucose 113 H (74-99) mg/dL Lactic Acid (0.4-2.0) mmol/L Calcium 8.7 (8.5-10.1) mg/dL Total Bilirubin 0.6 (0.2-1.0) mg/dL AST 187 H (15-37) U/L ALT 80 H (14-59) U/L Alkaline Phosphatase 211 H (46-116) U/L Ammonia (11-32) umol/L Total Protein 6.7 (6.4-8.2) g/dL Albumin 3.2 L (3.4-5.0) g/dL Globulin 3.5 Albumin/Globulin Ratio 0.91 Amylase 77 (25-115) U/L Lipase 280 (73-393) U/L Urine Color (YELLOW) Urine Appearance (CLEAR) Urine pH (5.0-9.0) Ur Specific [place] (1.005-1.030) Urine Protein (NEGATIVE) Urine Glucose (UA) (NEGATIVE) Urine Ketones (NEGATIVE) Urine Occult Blood (NEGATIVE) Urine Nitrite (NEGATIVE) Urine Bilirubin (NEGATIVE) Urine Urobilinogen (0.2-1.0) mg/dL Ur Leukocyte Esterase (NEGATIVE) Urine RBC /HPF Urine WBC (0-5/HPF) /HPF Ur Epithelial Cells (NOT SEEN) /HPF Amorphous Sediment (NOT SEEN) /HPF Urine Bacteria (0-FEW/HPF) /HPF Urine Mucus (NOT SEEN) /LPF 09/01/19 09/01/19 09/01/19 Range/Units 20:05 20:05 20:26 WBC (5.0-10.0) 10^3/uL RBC (4.2-5.4) 10^6/uL Hgb (12.0-16.0) g/dL Hct (37.0-47.0) % MCV (80-100) fL MCH (27.0-34.0) pg MCHC (33.0-35.0) g/dL Plt Count (150-450) 10^3/uL Neut % (Auto) (42.2-75.2) % Lymph % (Auto) (20.5-50.1) % [place] % (Auto) (2-8) % Eos % (Auto) (1.0-3.0) % Baso % (Auto) (0.0-1.0) % PT (9.0-12.0) SEC INR (0.9-1.2) Sodium (136-145) mmol/L Potassium (3.5-5.1) mmol/L Chloride (98-107) mmol/L Carbon Dioxide (21-32) mmol/L Anion Gap (7-13) mEq/L BUN (7-18) mg/dL Creatinine (0.55-1.02) mg/dL Est Cr Clr Drug Dosing mL/min Estimated GFR (MDRD) BUN/Creatinine Ratio (No establ ref range) Glucose (74-99) mg/dL Lactic Acid 2.5 H* (0.4-2.0) mmol/L Calcium (8.5-10.1) mg/dL Total Bilirubin (0.2-1.0) mg/dL AST (15-37) U/L ALT (14-59) U/L Alkaline Phosphatase (46-116) U/L Ammonia < 10 L (11-32) umol/L Total Protein (6.4-8.2) g/dL Albumin (3.4-5.0) g/dL Globulin Albumin/Globulin Ratio Amylase (25-115) U/L Lipase (73-393) U/L Urine Color Yellow (YELLOW) Urine Appearance Slightly cloudy (CLEAR) Urine pH 5.5 (5.0-9.0) Ur Specific [place] 1.015 (1.005-1.030) Urine Protein Negative (NEGATIVE) Urine Glucose (UA) Negative (NEGATIVE) Urine Ketones Trace H (NEGATIVE) Urine Occult Blood Negative (NEGATIVE) Urine Nitrite Negative (NEGATIVE) Urine Bilirubin Small H (NEGATIVE) Urine Urobilinogen 0.2 (0.2-1.0) mg/dL Ur Leukocyte Esterase Trace H (NEGATIVE) Urine RBC Not seen /HPF Urine WBC 5-10 H (0-5/HPF) /HPF Ur Epithelial Cells Few (NOT SEEN) /HPF Amorphous Sediment Few (NOT SEEN) /HPF Urine Bacteria Few (0-FEW/HPF) /HPF Urine Mucus Rare (NOT SEEN) /LPF Meds: Medications Discontinued Medications Generic Name Dose Route Start Last Admin Trade Name Luisa PRN Reason Stop Dose Admin Hydrocodone Bitart/Acetaminophen Confirm 09/02/19 00:11 [place] 325-5 Mg Administered 09/02/19 00:12 Dose 2 tab .ROUTE .STK-MED ONE Iopamidol 100 ml 09/01/19 20:43 09/01/19 21:54 Isovue-300 (61%) IVPUSH 09/01/19 20:44 75 ml ONETIME ONE Administration Morphine Sulfate 2 mg 09/01/19 21:56 09/01/19 22:07 Morphine IVPUSH 09/01/19 21:57 2 mg ONETIME ONE Administration Oxycodone/Acetaminophen Confirm 09/01/19 23:47 Percocet 325-5 Mg Administered 09/01/19 23:48 Dose 2 tab .ROUTE .STK-MED ONE - Radiology Interpretation Free Text/Narrative:: [facility] Final Radiology Report Call: [phone] assistance Online chat: [email or web address] [place] Name: MAXIME KINCAID Age: 78Years F Date: 09/01/2019 SSN: -- : [id number] Study: CT ABDOMEN/PELVIS W Requesting Physician: SURY SALAS Images: [id number] Addl Studies: Provided Clinical History: abdominal pain, history of breast, liver, bone mets Contrast: With Contrast Medium: isovue 300 Contrast Amount: 75 mL Contrast Method: rac Page 1 of 3 PROCEDURE INFORMATION: Exam: CT Abdomen And Pelvis With Contrast Exam date and time: 09/01/2019 9:21 PM Age: 78 years old Clinical indication: Abdominal pain; Generalized; Additional info: Abdominal pain, history of breast, liver, bone mets TECHNIQUE: Imaging protocol: Computed tomography of the abdomen and pelvis with intravenous contrast. Radiation optimization: All CT scans at this facility use at least one of these dose optimization techniques: automated exposure control; mA and/or kV adjustment per patient size (includes targeted exams where dose is matched to clinical indication); or iterative reconstruction. Contrast material: ISOVUE 300; Contrast volume: 75 ml; Contrast route: RAC; COMPARISON: No relevant prior studies available. FINDINGS: Lungs: Emphysema, and foci of atelectasis and/or scarring are present in the lung bases. Multiple too small to characterize noncalcified pulmonary nodules are present in the right middle lobe. The largest pulmonary nodule measures 3.3 mm. It is identified on axial image 10 of series 5. There is a too small to characterize right lower lobe pulmonary nodule that is not calcified. The pulmonary nodule measures 2.7 mm. It is identified on axial image 15 of series 5. Pleural space: Small, partially visualized bilateral pleural effusions. Liver: There are multiple hypodense lesions in the liver, consistent with metastases. The largest lesion is present in the right lobe of the liver, measuring up to approximately 9.1 cm greatest dimension. The liver is large, measuring 17.2 centimeters craniocaudal dimension. Gallbladder and bile ducts: Dilated common bile duct, measuring up to 10.3 mm AP dimension. Pancreas: Normal. No ductal dilation. MAXIME KINCAID | Final Radiology Report Page 2 of 3 Spleen: Prominent craniocaudal dimension of the spleen, measuring up to 12.4 cm. Adrenals: Normal. No mass. Kidneys and ureters: There is a too small to characterize hypodense lesion in the right kidney. The appearance is suggestive of a cyst. This finding measures 0.7 cm. There is a hypodense lesion in the upper pole of the left kidney. This finding measures up to 1.4 cm. It demonstrates a mean Hounsfield measurement of approximately 45.9. This is not consistent with a simple cyst. Stomach and bowel: There is a mild component of nonspecific air-fluid levels within small bowel. Appendix: No evidence of appendicitis. Intraperitoneal space: There is a small amount of free pelvic fluid present. Vasculature: Mild to moderate, diffuse atherosclerotic vascular calcifications are present. Lymph nodes: Unremarkable. No enlarged lymph nodes. Bladder: The bladder is not well distended. Reproductive: Absent uterus. Bones/joints: There are multiple, multifocal sclerotic bone lesions, consistent with metastases. The lesions are present in the spine, pelvic bones, left femur. Soft tissues: Unremarkable. IMPRESSION: 1. Multiple too small to characterize noncalcified pulmonary nodules involving the right lung base. The differential diagnosis includes changes due to an infectious or inflammatory process, versus metastatic disease. Correlation with prior examinations, if they become available, would be helpful for stability assessment. If no prior exams become available, consider follow-up nonemergent chest CT to assess for the possibility of additional pulmonary lesions. Fleischner Society guidelines used for recommendations regarding pulmonary nodule followup. 2. Multiple hepatic metastases. Hepatomegaly. 3. Small amount of free fluid in the pelvis. 4. 1.4 cm hypodense lesion in the left kidney, not consistent with a simple cyst. The differential diagnosis includes complex, potentially hemorrhagic or inflammatory cyst, versus a neoplasm. Correlation with prior examinations, if they become available, would be helpful for stability assessment. If no prior examinations become available, consider followup nonemergent renal ultrasound for further evaluation. 5. [id number] diffuse atherosclerosis. 6. Multiple, diffuse bony metastases. 7. Mild component of nonspecific air-fluid levels within small bowel. This can be present with enteritis. Correlate clinically. COMMENTS: Consistent with the [employer]'s Incidental Findings Committee white paper (J Am Odell Radiol 2018): Any incidental renal lesion less than 1.0 cm or classified as too small to characterize, or any incidental cystic renal lesion characterized as simple- appearing, is likely benign. No follow-up imaging is recommended for these lesions per consensus - Re-Assessments/Exams Free Text/Narrative Re-Assessment/Exam: Pain improved. No critical findings in lab or CT. Vitals stable. Recommend patient follow up with oncologist in am. Patient given copy of today's CT to take to appoint for oncology review. Departure - Departure Time of Disposition: 23:55 Disposition: Home, Self-Care 01 Condition: Fair Clinical Impression: Metastatic cancer to liver, Right lateral abdominal pain - Discharge Information *PRESCRIPTION DRUG MONITORING PROGRAM REVIEWED*: No *COPY OF PRESCRIPTION DRUG MONITORING REPORT IN PATIENT JANETT: No Instructions: Abdominal Pain, Adult, [id number], Pain Medicine Instructions, [id number] Referrals: PCP,None [Ordering Only Provider] - Forms: ED Department Discharge Additional Instructions: light diet start with small volume liquids then advance as tolerated hydrocodone 5/325 one every 6 hours as needed for pain follow up with Dr Carreon's office in am Urgent follow up severe pain, difficulty breathing, fever, or cough Sepsis Event Note - Evaluation Sepsis Screening Result: No Definite Risk - Focused Exam Vital Signs: Vital Signs Temp Pulse Resp BP Pulse Ox 09/01/19 19:52 99.4 F 97 18 119/51 L 99 Date Exam was Performed: 09/02/19 Time Exam was Performed: 03:58 - My Orders Last 24 Hours: My Active Orders 09/01/19 19:59 Blood Culture x2 Reflex Set [OM.PC] Stat 09/01/19 20:00 CULTURE BLOOD [BC] Stat 09/01/19 20:05 CULTURE BLOOD [BC] Stat 09/01/19 20:26 CULTURE URINE [RM] Stat - Assessment/Plan Last 24 Hours: My Active Orders 09/01/19 19:59 Blood Culture x2 Reflex Set [OM.PC] Stat 09/01/19 20:00 CULTURE BLOOD [BC] Stat 09/01/19 20:05 CULTURE BLOOD [BC] Stat 09/01/19 20:26 CULTURE URINE [RM] Stat"
[2019-09-02] MEDS ORDERED: Acetaminophen/HYDROcodone 325-5 MG Tab ONE (00:11)
== END 2019-09-02 00:06 | disposition home or self-care (01) ==
LOC: DL.ED 19:50
DX: C22.9 Malignant neoplasm of liver, not specified as primary or secondary (principal); F41.9 Anxiety disorder, unspecified; F32.9 Major depressive disorder, single episode, unspecified; Z79.899 Other long term (current) drug therapy; Z88.1 Allergy status to other antibiotic agents; Z88.2 Allergy status to sulfonamides
CPT/HCPCS: 36415; 74177; 80053; 81001; 82140; 82150; 83605; 83690; 85025; 85610; 87040; 87086; 96374; 99284; A9270; J2270; Q9967